=== PATIENT | female | born 1950 | race Caucasian/White ===

== ENCOUNTER → 2019-04-30 15:37 | Outpatient (CLI) | payer MEDICARE, SELFPAY ==
--- NOTE | ~2019-04-30 | MM_ITS ---
EXAMINATION: MM screening [facility] BI w jaime HISTORY: Screening mammogram TECHNIQUE: Craniocaudal and mediolateral oblique 3-D tomosynthesis images were obtained and synthetic 2-D images were generated. CAD analysis was submitted and interpreted. COMPARISON: Prior mammograms dating back to 02/18/2013 BREAST PARENCHYMAL COMPOSITION: The breasts are almost entirely fatty. FINDINGS: An intramammary lymph node is noted in the outer right breast. There is no evidence of susp icious mass, calcification, or architectural distortion to suggest malignancy in either breast. There has been no suspicious interval change. IMPRESSION: 1. No mammographic evidence of malignancy. 2. Recommend routine screening mammography in one year. BI-RADS Category 2: Benign finding(s). 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
== END ==
PROVIDERS: PCP Family Medicine Adolescent Medicine; Visit Provider Family Medicine Adolescent Medicine
DX: Z12.31 Encounter for screening mammogram for malignant neoplasm of breast (principal)
CPT/HCPCS: 77063; 77067

== ENCOUNTER 2019-10-23 01:10 | Outpatient (CLI) | payer MEDICARE, SELFPAY ==
[2019-10-23 18:39] LABS: SARS-CoV-2 RNA PCR Negative
== END 2019-10-23 01:11 | disposition home or self-care (01) ==
LOC: ANHCOVIDDT 01:10
PROVIDERS: PCP Family Medicine Adolescent Medicine; Visit Provider Internal Medicine Gastroenterology
DX: Z01.812 Encounter for preprocedural laboratory examination (principal); Z11.59 Encounter for screening for other viral diseases
CPT/HCPCS: 87635; C9803; U0003

== ENCOUNTER 2019-10-25 02:19 | Day surgery (SDC) | payer MEDICARE, SELFPAY ==
[2019-10-18 10:40] VITALS: BMI 32.2
[2019-10-25 07:36] VITALS: BP 149/76; PULSE 83; RESP 16; TEMP 36.6; O2SAT 99; BMI 32.8
[2019-10-25] MEDS: LACTATED RINGERS 1,000 ML 150 ML IV CONT (07:40)
--- NOTE | 2019-10-25 07:59 | WPDANESEPPF ---
Anes - Initial Pre Proc Eval Procedure: Operation Date: 10/25/19 08:30 Proposed Procedures p Screening Colonoscopy - Kamran Bacon MD Date/Time: 10/25/19 07:59 Surgeon: Kamran Bacon MD Pre Op Diagnosis: neoplasm screening Patient Data Age: 69 Gender: F Height: 5 ft 2 in Weight: 81.6 kg Last Vital Signs Temp 97.8 F 10/25/19 07:36 Pulse 83 10/25/19 07:36 Resp 16 10/25/19 07:36 BP 149/76 H 10/25/19 07:36 Pulse Ox 99 10/25/19 07:36 Allergies Allergy/AdvReac Type Severity Reaction Status Date / Time codeine Allergy Other Verified 10/25/19 07:35 Home Medications Medication Instructions Recorded Confirmed Type multivitamin [Daily Multi-Vitamin] 1 tablet PO DAILY 10/18/19 10/18/19 History simvastatin 40 mg PO DAILY 10/18/19 10/18/19 History tramadol See Rx Instructions .ROUTE 10/18/19 10/18/19 History .COMPLEX PRN Patient hx anesthesia problems: none Family hx anesthesia problems: none [facility] Past Medical History Medical History (Updated 10/25/19 @ 07:58 by Bradley Block MD) Arthritis Hyperlipidemia Anes - Eval Final PreProcedure Day of Procedure 10/25/19 07:59 Patient weight: overweight Heart: regular rate and rhythm Lungs: clear to auscultation Airway: Mallampati scale class II Neurological: alert and oriented Last oral intake: >/= 8 hours ASA classification: II Emergent: no Anesthetic plan: proceed Anesthesia type and monitoring: general GIVS and standard monitoring Informed Consent: The patient's anesthetic plan and its attendant risks and benefits were discussed with the patient/family/POA. Questions were solicited and answers provided to the satisfaction of the patient/family/POA.
--- NOTE | 2019-10-25 08:01 | P.CONGI_ITS ---
Assessment and Plan Assessment and plan (1) Family history of colonic polyps: Code(s): Z83.71 - Family history of colonic polyps Status: Acute (2) History of colon polyps: Code(s): Z86.010 - Personal history of colonic polyps Status: Acute Assessment and Plan: Plan is for surveillance colonoscopy now and at intervals in the future because of family history of colon polyps and cancer. Colonoscopy will be performed today with follow-up in 3-5 years. (3) Family history of colon cancer in mother: Code(s): Z80.0 - Family history of malignant neoplasm of digestive organs Status: Acute GI Consult Note Consult date/time: 10/25/19 08:01 HPI: Sondra Lubin is a 69 year old female Seen in evaluation at the [facility] of Dr. Home Perez. Patient presents for screening colonoscopy. Patient current weight appetite bowel movements are normal. Her family history is significant that her mother and grandmother both have had colon cancer. There are other family members who have had colon polyps. Patient herself has had colon polyps in the past. Her most recent colonoscopy was 5 years ago. Patient states that her current weight appetite bowel is normal. She denies abdominal pain. She denies blood in stools. Her weight has remained stable. Review of Systems Review of Systems: All systems reviewed & are unremarkable except as noted in HPI and below PMFSH Past Medical History Medical History Arthritis Hyperlipidemia Meds Home Medications and Allergies Home Medications Medication Instructions Recorded Confirmed Type multivitamin [Daily Multi-Vitamin] 1 tablet PO DAILY 10/18/19 10/18/19 History simvastatin 40 mg PO DAILY 10/18/19 10/18/19 History tramadol See Rx Instructions .ROUTE 10/18/19 10/18/19 History .COMPLEX PRN Allergies Allergy/AdvReac Type Severity Reaction Status Date / Time codeine Allergy Other Verified 10/25/19 07:35 Vital Signs Vital Signs - 24 hr 10/25/19 07:36 Temperature 97.8 F Pulse Rate 83 Respiratory Rate 16 Blood Pressure 149/76 H Pulse Oximetry 99 Exam Narrative: Exam Narrative: Physical exam reveals patient to be alert. Vital signs stable. HEENT exam unremarkable. Heart is without murmur or extra sounds. Abdominal exam bowel sounds are present soft nontender with no organomegaly. Digital external rectal exam normal.
[2019-10-25] MEDS: SIMETHICONE ORAL SUSPENSION 20 MG/0.3 ML 30 ML BOTTLE 0.6 ML IRRIGATION (08:42)
[2019-10-25 08:57] VITALS: BP 108/56; PULSE 76; RESP 18; O2SAT 100
[2019-10-25 09:07] VITALS: BP 100/71; PULSE 71; RESP 23; O2SAT 97
[2019-10-25 09:16] VITALS: BP 119/68; PULSE 71; RESP 17; O2SAT 100
== END 2019-10-25 09:35 | disposition home or self-care (01) ==
PROVIDERS: PCP Family Medicine Adolescent Medicine; Visit Provider Internal Medicine Gastroenterology
PROC: 0DJD8ZZ Inspection of Lower Intestinal Tract, Via Natural or Artificial Opening Endoscopic (ICD-10-PCS; CPT 45378; principal; 2019-10-25 08:30)
DX: Z12.11 Encounter for screening for malignant neoplasm of colon (principal); D12.3 Benign neoplasm of transverse colon; K57.30 Diverticulosis of large intestine without perforation or abscess without bleeding; K64.8 Other hemorrhoids; Z80.0 Family history of malignant neoplasm of digestive organs; Z83.71 Family history of colonic polyps; E78.5 Hyperlipidemia, unspecified
CPT/HCPCS: 45385; 88305; J2001; J2704; J7120

== ENCOUNTER → 2020-08-03 12:55 | Outpatient (CLI) | payer MEDICARE, SELFPAY ==
--- NOTE | ~2020-08-03 | MM_ITS ---
EXAMINATION: MM screening [facility] BI w jaime HISTORY: Screening TECHNIQUE: Craniocaudal and mediolateral oblique 3-D tomosynthesis images were obtained and synthetic 2-D images were generated. CAD analysis was submitted and interpreted. COMPARISON: Comparison to multiple prior studies sequentially, with oldest reviewed study dated 02/01. BREAST PARENCHYMAL COMPOSITION: There are scattered areas of fibroglandular density. FINDINGS: There is no evidence of suspicious mass, calcification, or architectural distortion to sugg est malignancy in either breast. There has been no suspicious interval change. IMPRESSION: 1. No mammographic evidence of malignancy. 2. Recommend routine screening mammography in one year. BI-RADS Category 1: Negative Reviewed, dictated and finalized at location A.
== END ==
PROVIDERS: PCP Family Medicine Adolescent Medicine; Visit Provider Family Medicine Adolescent Medicine
DX: Z12.31 Encounter for screening mammogram for malignant neoplasm of breast (principal)
CPT/HCPCS: 77063; 77067

== ENCOUNTER → 2021-02-17 07:30 | Outpatient (CLI) | payer MEDICARE, SELFPAY ==
--- NOTE | ~2021-02-17 | XR_ITS ---
EXAMINATION: XR chest 2V DATE: 02/17/2021 07:49 INDICATION: Cough. TECHNIQUE: Frontal and lateral views of the chest were obtained. COMPARISON: Chest 2 views 04/14/2015, CT abdomen 11/21/2017 FINDINGS: The chest demonstrates clear lungs without pneumonia, pleural effusion, or pneumothorax. Th e heart size is normal. IMPRESSION: 1. No acute cardiopulmonary disease. Reviewed, dictated and finalized at location A. 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
== END ==
PROVIDERS: PCP Family Medicine Adolescent Medicine; Visit Provider Family Medicine Adolescent Medicine
DX: R05.9 Cough, unspecified (principal)
CPT/HCPCS: 71046

== ENCOUNTER → 2021-06-18 11:48 | Outpatient (CLI) | payer MEDICARE, SELFPAY ==
--- NOTE | ~2021-06-18 | XR_ITS ---
EXAMINATION: XR chest 2V 06/18/2021 12:13 INDICATION: Shortness of breath PROCEDURE: 2 view chest COMPARISON: Comparison to multiple prior studies sequentially, with oldest reviewed study dated 05/03. FINDINGS: The lungs are clear. The cardiomediastinal silhouette is within normal limits. There are no pleural effusions. There is no pneumothorax suspected. IMPRESSION: 1: NO ACUTE CARDIOPULMONARY DISEASE. Reviewed, dictated and finalized at location B.
== END ==
PROVIDERS: PCP Family Medicine Adolescent Medicine; Visit Provider Physician Assistant
DX: R06.02 Shortness of breath (principal)
CPT/HCPCS: 71046

== ENCOUNTER 2021-09-14 00:08 | Day surgery (SDC) | payer MEDICARE, SELFPAY ==
[2021-08-23 15:09] VITALS: BMI 34.8
--- NOTE | 2021-09-14 07:45 | WPDANESEPPF ---
Anes - Initial Pre Proc Eval Procedure: Operation Date: 09/14/21 09:00 Proposed Procedures p Esophagogastroduodenoscopy & Colonoscopy - Kamran Bacon MD Date/Time: 09/14/21 07:45 Surgeon: Kamran Bacon MD Pre Op Diagnosis: ANTWAN,fm hx colon ca,occasional GI bleed Patient Data Age: 71 Gender: F Height: 1.57 m Weight: 86.4 kg Allergies Allergy/AdvReac Type Severity Reaction Status Date / Time codeine Allergy Other Verified 09/14/21 07:47 Home Medications Medication Instructions Recorded Confirmed Type multivitamin (Daily Multi-Vitamin 1 tablet PO DAILY 10/18/19 08/23/21 History tablet) tramadol 50 mg tablet 50 mg PO Q6H PRN pain #120 tabs 05/03/21 08/23/21 Rx atorvastatin 20 mg tablet 20 mg PO DAILY 06/14/21 08/23/21 History glucosamine 750 [id number] 1 tablet PO BID 06/14/21 08/23/21 History no1 644 mg-C 30 mg-luis 1 mg tablet (Osteo Bi-Flex Triple Strength) ipratropium bromide 42 mcg (0.06 2 spray intranasal BID PRN Runny 06/14/21 08/23/21 History %) nasal spray Nose ketoconazole 2 % shampoo 1 applic topical 3XW #120 mL 06/14/21 08/23/21 Rx ferrous sulfate 325 mg (65 mg 325 mg PO BID #60 tabs 06/21/21 08/23/21 Rx iron) tablet valsartan 160 mg tablet 160 mg PO DAILY #30 tabs 08/09/21 08/23/21 Rx Patient hx anesthesia problems: none Family hx anesthesia problems: none Results Review: All pre-operative results and documents have been reviewed as part of the pre-operative evaluation. [facility] Past Medical History Medical History (Updated 08/13/21 @ 13:33 by ANEL Carmen) Arthritis Family hx of colon cancer Fibromyalgia Hx of adenomatous colonic polyps Hyperlipidemia Hypertension Juvenile Hoa's syndrome Obese Surgical History Surgical History History of bilateral hip replacements Family History Family History Mother Colon cancer Grandparent Colon cancer Sibling Melanoma Breast cancer Heart disease Father Heart disease Other Cerebrovascular accident Social History Social History Smoking packs per day: 0.5 Smoking cigarettes per day: 10.0 Years smoked: 5 Smoking pack-years: 2.50 Smoking status: Former smoker Tobacco type: cigarettes Second hand tobacco smoke exposure: No Smoking end date: 04/03/89 Alcohol intake: never Alcohol use details: Socially Substance use: never Substance use type: does not use Living arrangements: alone Gender identity (if verbalized by the patient): Female Sexual Orientation (if Verbalized by the Patient): Straight or Heterosexual Spiritual care concerns: No Agree to blood products: Yes Anes - Eval Final PreProcedure Day of Procedure 09/14/21 07:45 Patient weight: obese Heart: regular rate and rhythm Lungs: clear to auscultation Airway: Mallampati scale class II Neurological: alert and oriented Last oral intake: >/= 8 hours ASA classification: III Emergent: no Anesthetic plan: proceed Anesthesia type and monitoring: general GIVS and standard monitoring Results Review: All pre-operative results and documents have been reviewed as part of the pre-operative evaluation. Informed Consent: The patient's anesthetic plan and its attendant risks and benefits were discussed with the patient/family/POA. Questions were solicited and answers provided to the satisfaction of the patient/family/POA.
[2021-09-14 07:49] VITALS: BP 139/86; PULSE 87; RESP 18; TEMP 36.6; O2SAT 98
[2021-09-14] MEDS: LACTATED RINGERS 1,000 ML 150 ML IV CONT (08:00)
--- NOTE | 2021-09-14 08:23 | PM.IMHP ---
H&P: HPI History of Present Illness Date/Time: 09/14/21 08:23 Chief Complaint: Iron deficiency anemia and occult blood in stool. Narrative: This is a 71-year-old white female patient presents for colonoscopy. Patient recently complained of fatigue. Upon presenting to primary care office found to have anemia with iron deficient indices. Stool was occult positive. Patient has a history of adenomatous colon polyps in the past. Family history is significant that her mother and grandmother both have had colon cancer. Patient presents today for both colonoscopy an EGD to assess for etiology of anemia patient denies any other signs of bleeding. No bruises. No nose bleeds or blood in the urine. Review of Systems Review of Systems: Review of systems noncontributory. [facility] Past Medical History Medical History (Updated 08/13/21 @ 13:33 by ANEL Carmen) Arthritis Family hx of colon cancer Fibromyalgia Hx of adenomatous colonic polyps Hyperlipidemia Hypertension Juvenile Hoa's syndrome Obese Surgical History Surgical History History of bilateral hip replacements Family History Family History Mother Colon cancer Grandparent Colon cancer Sibling Melanoma Breast cancer Heart disease Father Heart disease Other Cerebrovascular accident Social History Social History Smoking packs per day: 0.5 Smoking cigarettes per day: 10.0 Years smoked: 5 Smoking pack-years: 2.50 Smoking status: Former smoker Tobacco type: cigarettes Second hand tobacco smoke exposure: No Smoking end date: 04/03/89 Alcohol intake: never Alcohol use details: Socially Substance use: never Substance use type: does not use Living arrangements: alone Gender identity (if verbalized by the patient): Female Sexual Orientation (if Verbalized by the Patient): Straight or Heterosexual Spiritual care concerns: No Agree to blood products: Yes Meds Home Medications and Allergies Home Medications Medication Instructions Recorded Confirmed Type multivitamin (Daily Multi-Vitamin 1 tablet PO DAILY 10/18/19 08/23/21 History tablet) tramadol 50 mg tablet 50 mg PO Q6H PRN pain #120 tabs 05/03/21 08/23/21 Rx atorvastatin 20 mg tablet 20 mg PO DAILY 06/14/21 08/23/21 History glucosamine 750 ot-[id number]-[id number] 1 tablet PO BID 06/14/21 08/23/21 History no1 644 mg-C 30 mg-luis 1 mg tablet (Osteo Bi-Flex Triple Strength) ipratropium bromide 42 mcg (0.06 2 spray intranasal BID PRN Runny 06/14/21 08/23/21 History %) nasal spray Nose ketoconazole 2 % shampoo 1 applic topical 3XW #120 mL 06/14/21 08/23/21 Rx ferrous sulfate 325 mg (65 mg 325 mg PO BID #60 tabs 06/21/21 08/23/21 Rx iron) tablet valsartan 160 mg tablet 160 mg PO DAILY #30 tabs 08/09/21 08/23/21 Rx Allergies Allergy/AdvReac Type Severity Reaction Status Date / Time codeine Allergy Other Verified 09/14/21 07:47 Vital Signs Vital Signs - 24 hr 09/14/21 07:49 Temperature 97.8 F Pulse Rate 87 Respiratory Rate 18 Blood Pressure 139/86 Pulse Oximetry 98 Oxygen Delivery Room Air Exam Narrative: Physical exam reveals patient to be alert. Vital signs stable. HEENT exam is unremarkable. Patient is anicteric. Lungs are clear to auscultation and percussion. Heart is without murmur or extra sounds. Abdominal exam bowel sounds are present soft nontender with no organomegaly. Digital external rectal exam is normal. Assessment and Plan Assessment and plan (1) Family hx of colon cancer: Code(s): Z80.0 - Family history of malignant neoplasm of digestive organs Status: Acute Assessment and Plan: Patient's mother and grandmother have had colon cancer. For this reason screening colonoscopy now and at interva
[2021-09-14 09:38] VITALS: BP 120/73; PULSE 83; RESP 17; O2SAT 99
[2021-09-14 09:48] VITALS: BP 115/68; PULSE 74; RESP 15; O2SAT 100
--- NOTE | 2021-09-14 09:56 | SUR.OPER ---
EGD START: 911; END: 913. COLONOSCOPY START: 919; END: 933.
[2021-09-14 09:58] VITALS: BP 141/69; PULSE 69; RESP 21; O2SAT 100
[2021-09-14 10:06] LABS: Hematocrit 39.3 % (37.0-47.0); Hemoglobin 12.5 g/dL (12.0-15.0); Mean Corpuscular HGB Conc 31.8 g/dl (32-36); Mean Corpuscular Hemoglobin 27.5 pg (26-34); Mean Corpuscular Volume 86.4 fl (80-100); Mean Platelet Volume 9.8 fl (7.4-10.4); Platelet Count Result 245 k/mm3 (150-375); Red Blood Count 4.55 M/mm3 (4.2-5.4); Red Cell Distribution Width 15.6 % (11.5-14.5); White Blood Count 5.3 K/mm3 (4.5-10.0)
--- NOTE | 2021-09-14 10:07 | SUR.PHASEII ---
labs obtained and sent to lab per Dr. Bacon orders. pt provided with general surgery's office number. verified with pt correct pharmacy and order placed for script.
[2021-09-14 10:16] LABS: Alanine Aminotransferase 20 U/L (6-35); Albumin Level 3.8 g/dL (3.5-5.1); Alkaline Phosphatase 102 U/L (38-126); Aspartate Amino Transferase 25 U/L (14-36); Bilirubin,Total 0.5 mg/dL (0.2-1.3)
--- NOTE | 2021-09-14 10:26 | SUR.PHASEII ---
pt requested RN go over discharge instructions with daughter at pickup. instructions reviewed with daughter, denies questions.
[2021-09-14 11:06] LABS: Carcinoembryonic Antigen 4.2 ng/mL (0.0-3.0)
== END 2021-09-14 10:19 | disposition home or self-care (01) ==
PROVIDERS: PCP Family Medicine Adolescent Medicine; Visit Provider Internal Medicine Gastroenterology
PROC: 0DJ08ZZ Inspection of Upper Intestinal Tract, Via Natural or Artificial Opening Endoscopic (ICD-10-PCS; CPT 43235; principal; 2021-09-14 09:00)
DX: C18.0 Malignant neoplasm of cecum (principal); D12.5 Benign neoplasm of sigmoid colon; K64.8 Other hemorrhoids; D50.9 Iron deficiency anemia, unspecified; K21.00 Gastro-esophageal reflux disease with esophagitis, without bleeding; Z83.71 Family history of colonic polyps; Z80.0 Family history of malignant neoplasm of digestive organs; I10 Essential (primary) hypertension; E78.5 Hyperlipidemia, unspecified; M79.7 Fibromyalgia; M02.30 Reiter's disease, unspecified site; Z87.891 Personal history of nicotine dependence; E66.9 Obesity, unspecified; Z68.33 Body mass index [BMI] 33.0-33.9, adult
CPT/HCPCS: 45380; 45385; 43239; 36415; 80076; 82378; 85027; 87081; 88305; J2001; J2704; J7120

== ENCOUNTER 2021-10-05 11:54 | Outpatient (CLI) | payer MEDICARE, SELFPAY ==
--- NOTE | 2021-10-05 13:11 | ECG_ITS ---
Measurements Intervals [place] Rate: 73 P: 49 [place]: 140 QRS: 40 QRSD: 92 T: 44 QT: 384 QTc: 426 Interpretive Statements SINUS RHYTHM BASELINE ARTIFACT- I, II, III, AVR, AVL, AVF, V1-V6 NORMAL ECG Electronically Signed On 10-05-2021 13:24:16 CDT by Edd Zeng D.O.
== END 2021-10-05 11:55 | disposition home or self-care (01) ==
LOC: ANHSURGERY 12:01
PROVIDERS: PCP Family Medicine Adolescent Medicine; Visit Provider Surgery
DX: K63.89 Other specified diseases of intestine (principal); Z01.818 Encounter for other preprocedural examination
CPT/HCPCS: 36415; 86850; 86900; 86901; 93005

== ENCOUNTER 2021-10-14 11:20 | Inpatient (IN) | payer MEDICARE, SELFPAY ==
--- NOTE | 2021-10-05 12:32 | PC.NURSE ---
Addendum entered by Monse Yo RN 10/05/21 12:40: ENSURE BUNDLE PER DR GARRISON Original Note: Report to the Outpatient Waiting Room, entrance under the green pavilion located off [address], at time __0600 on date ___10/14/21____. OR Time: 729 . - You and your visitor will be asked a series of questions to screen for COVID 19 for your protection. - Only one visitor is allowed at this time. - The patient visitor is requested to leave or wait in car when not with patient. - A mask is required within the hospital. Patients may have clear liquids (water, carbonated beverages, clear teas, apple juice) until 3 hours prior to surgery with a maximum of 20 ounces. - No food from midnight until time of surgery - Infants may have breast milk until 4 hours before surgery, formula 6 hours prior to surgery. - Children will be allowed to drink immediately following surgery. If applicable, please bring a bottle or sippy cup to assist with drinking. Juice, water, soda, and popsicles are readily available. For infants on formula, please bring formula the day of surgery. Pacifiers are allowed. Take the following medications with a SIP of water the morning of surgery: ___NONE Medications to discontinue per physician ALL VITAMINS AND SUPPLEMENTS 3 DAYS PRE OP Date to take last dose_10/10/21 Please no make-up, nail malay, hairspray, perfume, deodorant, or body powder the day of surgery. No jewelry (including any body piercings) or valuables the day of surgery, leave them at home. Please take a shower or bath the night before, or the morning of, surgery with an antibacterial soap. Wear comfortable, loose fitting clothing. Children are encouraged to wear pajamas. - Jewelry must be removed prior to entering the operating room. Rings and piercings that are not removed may be cut off. - The hospital will not accept responsibility for valuables. - Please leave all valuables, including medications, at home the day of surgery.HIBICLENS SHOWER DAY BEFORE SURGERY AND MORNING OF SURGERY If you are going home after surgery, a licensed student truck driver must drive you home. - NO public transportation without another adult. - We recommend that an adult stay with you for 24 hours following discharge. - We also recommend that you do not drive, make important decision, drink alcoholic beverages, or take any drugs that were not prescribed by your health care provider for at least 24 hours after your discharge time. For Pediatric surgeries, we recommend two adults accompany the child home (only one inside the building at this time). Follow any additional instructions given to you from your surgeon. If you or anyone in your household have experienced Covid symptoms in the past week, please notify your surgeon or the nurse liaison at the phone number below for possible testing. VERBAL AND WRITTEN instructions given to ___PATINET and asked if any additional questions and then verbalized understanding. Patient advised to call surgeon office or pre surgery nurse liaison [phone] if any additional questions.
[2021-10-05 13:06] VITALS: BP 138/77; PULSE 80; RESP 18; TEMP 36.8; O2SAT 97; BMI 34.2
[2021-10-14] VITALS (17 sets, daily range): BP systolic 107–145; BP diastolic 51–91; PULSE 55–97; RESP 12–18; TEMP 36.5–37.1; O2SAT 94–100
[2021-10-14] MEDS: ACETAMINOPHEN 500 MG TABLET 1000 MG PO (07:00)
[2021-10-14] MEDS: ALVIMOPAN 12 MG CAPSULE PO (07:00)
[2021-10-14] MEDS: KETOROLAC 15 MG/ML VIAL (*BKC) IV PUSH (07:00)
--- NOTE | 2021-10-14 07:21 | WPDHPUPDATE1 ---
History and Physical Update Update Date/Time: 10/14/21 07:21 History and Physical has been reviewed, including an updated exam of the patient. There are NO changes in the patient's condition. Risks, benefits, and alternatives have been discussed and questions answered. Patient agrees to proceed with procedure.
[2021-10-14] MEDS: ceFAZolin 2 GM/D5W 50 ML 2 GM/50 ML BAG IVPB ×3 (07:28→23:26)
[2021-10-14] MEDS: SCOPOLAMINE 1.5 MG PATCH TRANSDERM (07:38)
[2021-10-14] MEDS: LACTATED RINGERS 1,000 ML 30 ML IV CONT (07:38)
[2021-10-14] MEDS: BUPIVACAINE/EPINEPHRINE 0.25% 50 ML VIAL 30 ML INFILTRATE (08:50)
--- NOTE | 2021-10-14 09:28 | W.PM.PROC2 ---
Procedure Note - Detailed Date of Procedure 10/14/21 Pre-op Diagnosis cecal cancer Post-op Diagnosis Same Procedure Performed hand assisted laparoscopic right hemicolectomy c mobilization of hepatic flexure Surgeon Christelle Webber MD Anesthesia General Indications 71 y/o F c biopsy proven cecal cancer on colonoscopy Findings palpable mass cecum Description of Procedure The patient was taken to the operating room and placed in the supine position. After adequate induction of general anesthesia, the patient was prepped and draped normal sterile fashion. A time-out was then done to verify the patient's identity as well as the procedure being performed. I began by making a hand port incision around the umbilicus. This was carried down into the peritoneal cavity. Once the abdominal wall was noted to be clear, the hand port was then placed. I then insufflated the abdomen through the hand port. I then placed the camera through the hand port and under direct visualization, I placed 2 5 mm ports in left lower and left mid abdomen. Once this was done, I examined the right abdomen. I was able to easily palpate the mass in the cecum. I then began my dissection of the right colon using a medial to lateral approach. I did this by 1st recognizing and transecting the right colic vessels. This was taken down near the base of the mesentery with the LigaSure. Once this was done, I carried this plane towards the hepatic flexure until I encountered the duodenum which was mobilized posteriorly. I then began taking down the lateral attachments of the terminal ileum and right colon including taking down the white line of Toldt and the hepatic flexure. Once this was done my medial and lateral dissection planes met. I was able to easily manipulate the right colon. The palpable mass was again noted in the cecum. At this point, I extracorporealyzed the right colon and terminal ileum. I then transected the terminal ileum approximately 10 cm proximal to the ileocolic junction with a 55 GLORIA stapler. I then measured approximately 10 cm distal to the cecal mass and transected the ascending colon at this point. While preparing for anastomosis, it was noted that the small bowel margin was a little dusky, given this I did resect additional ileum. I then performed a [id number] functional end-to-end anastomosis between the ileum and ascending colon with a 55 GLORIA stapler followed by a TL 60 stapler. The anastomosis was noted to be tension-free and widely patent. I closed the messenteric defect with a 2.0 silk suture. I then copiously irrigated the abdomen, no other pathology was noted. I then closed the hand port incision with a 0 PDS suture at the fascial level. The skin was closed with 4 O Monocryl subcuticular sutures including the 5 mm ports sites. Dermabond was then placed on all wounds. The patient tolerated the procedure well. She was extubated in the operating room postoperatively and will be transferred to the recovery room in stable condition. Estimated Blood Loss 20 Drains No Packing No Pathology Yes Complications No immediate complications Condition Stable Disposition PACU [facility] Billing Surgery - Charge Forward: Surgery Billing
[2021-10-14] MEDS: fentaNYL CITRATE INJ (*CRX) 100 MCG/2 ML VIAL 25 MCG IV PUSH ×4 (09:40→09:58)
--- NOTE | 2021-10-14 11:35 | ADMGEN ---
This patient, Sondra Lubin, was admitted to 2 Medical Room 257-01. Patient/family oriented to hospital policies and general routines including ID bracelet, bed and alarms, visiting hours, pain management, procedures, bathroom and other care routines, personal items, smoking policy, room service/diet, and visiting hours. Information on how to activate the Rapid Response Team has been discussed. Patient/Family are encouraged to report perceived risks to care and to ask questions if they do not understand what they are told or what they should do.
[2021-10-14] MEDS: LACTATED RINGERS 1,000 ML 100 ML IV CONT ×2 (12:17→23:07)
--- NOTE | 2021-10-14 16:47 | PC.NURSE ---
pt not wanting to take PO meds due to only taking in clear liquids
[2021-10-14] MEDS: MORPHINE SULFATE (*CRX) 2 MG/ML INJ IV PUSH ×2 (20:52→23:08)
[2021-10-14] MEDS: ATORVASTATIN 20 MG TABLET PO (20:53)
[2021-10-15 01:05] VITALS: BP 128/61; PULSE 90; RESP 18; TEMP 37.1; O2SAT 95
[2021-10-15] MEDS: HYDROcodone/acetaminophen (*CRX) 5-325 MG TABLET 1 TAB PO ×4 (02:15→23:12)
[2021-10-15 05:02] VITALS: BP 120/55; PULSE 74; RESP 16; TEMP 36.7; O2SAT 97
[2021-10-15 05:39] LABS: Basophils Percent Auto 0.1 % (0.2-1.2); Hematocrit 34.6 % (37.0-47.0); Hemoglobin 11.1 g/dL (12.0-15.0); Immature Granulocyte Absolute 0.04 K/mm3 (0.00-0.031); Immature Granulocyte Percent A 0.3 % (0-0.5); Lymphocytes Absolute Auto 1.13 K/mm3 (0.9-3.2); Lymphocytes Percent Auto 8.8 % (18.3-44.2); Mean Corpuscular HGB Conc 32.1 g/dl (32-36); Mean Corpuscular Hemoglobin 27.5 pg (26-34); Mean Corpuscular Volume 85.6 fl (80-100); Monocytes Absolute Auto 0.9 K/mm3 (0.1-0.6); Monocytes Percent Auto 7.1 % (2.6-8.5); Neutrophils Absolute Auto 10.7 K/mm3 (1.3-6.7); Neutrophils Percent Auto 83.7 % (45.5-73.1); Platelet Count Result 277 k/mm3 (150-375); Red Blood Count 4.04 M/mm3 (4.2-5.4); Red Cell Distribution Width 14.2 % (11.5-14.5); White Blood Count 12.8 K/mm3 (4.5-10.0)
[2021-10-15 05:43] LABS: Anion Gap 3 mmol/L (8-16); Blood Urea Nitrogen 15 mg/dL (7-17); Calcium 8.4 mg/dL (8.4-10.2); Carbon Dioxide 27 mmol/L (22-30); Chloride 107 mmol/L (98-107); Estimated CRCL calculation 73 ml/min; Estimated Glomerular Filt Rate > 60; Glucose 124 mg/dL (65-110); Potassium 3.7 mmol/L (3.4-5.0); Sodium 137 mmol/L (137-145)
[2021-10-15] MEDS: ENOXAPARIN 40 MG/0.4 ML SYRINGE SUB-Q (07:57)
[2021-10-15] MEDS: MULTIVITAMINS THERAPEUTIC TAB (*BKC) 1 TABLET PO (07:57)
[2021-10-15] MEDS: FERROUS SULFATE 324 MG TABLET PO ×2 (07:57→16:25)
[2021-10-15] MEDS: VALSARTAN 160 MG TABLET PO (07:58)
[2021-10-15] MEDS: PANTOPRAZOLE 40 MG TABLET PO (07:58)
[2021-10-15] MEDS: MORPHINE SULFATE (*CRX) 2 MG/ML INJ IV PUSH (07:58)
[2021-10-15 10:00] VITALS: BP 121/56; PULSE 80; RESP 16; TEMP 37.2; O2SAT 95
--- NOTE | 2021-10-15 10:51 | PM.PNGS ---
Progress Note: A&P Assessment and Plan (1) Colon carcinoma: Code(s): C18.9 - Malignant neoplasm of colon, unspecified Status: Acute Assessment and Plan: s/p R colectomy, doing well, ADAT, encourage OOB/IS, home soon Subjective Subjective Date/Time Seen: 10/15/21 10:51 feels good, some flatus, ahmet clears Review of Systems Review of Systems: All systems reviewed & are unremarkable except as noted in HPI and below Exam Const: General: cooperative, comfortable and no acute distress Resp: Auscultation: clear to auscultation bilaterally Cardio: Rate: regular rate Rhythm: regular rhythm GI: Inspection: normal to inspection, distended and incision GI Palp: Yes abdominal tenderness, Yes Soft to palpation, Yes Tenderness to palpation present (GI), No Guarding due to palpation present (GI) and No Rigid due to palpation Other: incision C/D/I Objective Data Vital Signs Vital Signs: Vital Signs - 24 hr 10/14/21 11:00 10/14/21 11:15 10/14/21 11:47 Temperature 36.7 C Pulse Rate 91 96 86 Respiratory Rate 12 16 15 Blood Pressure 109/63 111/65 117/51 L Pulse Oximetry 98 98 97 Oxygen Delivery Nasal Cannula Nasal Cannula Oxygen Flow Rate 2 2 10/14/21 12:03 10/14/21 12:33 10/14/21 17:33 Temperature 36.7 C 36.5 C 36.9 C Pulse Rate 87 90 97 Respiratory Rate 16 16 18 Blood Pressure 117/59 L 115/61 122/51 L Pulse Oximetry 96 94 94 Oxygen Delivery Oxygen Flow Rate 10/14/21 21:00 10/14/21 20:00 10/15/21 01:05 Temperature 37.1 C 37.1 C Pulse Rate 95 95 90 Respiratory Rate 16 16 18 Blood Pressure 126/59 L 128/61 Pulse Oximetry 96 96 95 Oxygen Delivery Room Air Oxygen Flow Rate 10/15/21 05:02 10/15/21 10:00 Temperature 36.7 C 37.2 C Pulse Rate 74 80 Respiratory Rate 16 16 Blood Pressure 120/55 L 121/56 L Pulse Oximetry 97 95 Oxygen Delivery Oxygen Flow Rate Intake/Output Intake/Output: Intake & Output 10/12/21 10/13/21 10/14/21 10/15/21 23:59 23:59 23:59 23:59 Intake Total 1640 480 Output Total 300 400 Balance 1340 80 Meds/Results Medications: Active Medications Generic Name Dose Route Start Last Admin Trade Name Willardq PRN Reason Stop Dose Admin Acetaminophen 500 mg 10/14/21 11:20 Acetaminophen 500 Mg Tablet PO Q6H PRN Mild Pain (1-3) or Fever Hydrocodone Bitart/Acetaminophen 1 tab 10/14/21 11:20 10/15/21 02:15 Hydrocodone/Acetaminophen (*Crx) 5-325 Mg Tablet PO 1 tab Q4H PRN Administration Pain Rated 4-6 Alvimopan 12 mg 10/15/21 21:00 Alvimopan 12 Mg Capsule PO 10/22/21 20:59 Q12HR L[place] Atorvastatin Calcium 20 mg 10/14/21 21:00 10/14/21 20:53 Atorvastatin 20 Mg Tablet PO 20 mg HS L[facility]TON Administration Enoxaparin Sodium 40 mg 10/15/21 09:00 10/15/21 07:57 Enoxaparin 40 Mg/0.4 Ml Syringe SUB-Q 40 mg DAILY L[facility]TON Administration Ferrous Sulfate 324 mg 10/14/21 17:00 10/15/21 07:57 Ferrous Sulfate 324 Mg Tablet PO 324 mg BID L[place]TON Administration Lactated Ringer's 1,000 mls @ 100 mls/hr 10/14/21 11:20 10/14/21 23:07 Lr - Lactated Ringers Iv IV CONT 100 mls/hr .Q10H LAYTON Administration Ipratropium [place] 2 spray 10/14/21 11:20 Ipratropium Nasal [place] 0.06% 15 Ml Bottle NASAL BID PRN Runny Nose Ketorolac Tromethamine 30 mg 10/14/21 11:20 Ketorolac 30 Mg/Ml Vial (*Bkc) IV PUSH 10/19/21 11:19 Q6H PRN Pain Rated 4-6 Morphine Sulfate 2 mg 10/14/21 11:20 10/15/21 07:58 Morphine Sulfate (*Crx) 2 Mg/Ml Inj IV PUSH 2 mg Q2H PRN Administration Pain Rated 7-10 Multivitamins Therapeutic 1 tablet 10/15/21 09:00 10/15/21 07:57 Multivitamins Therapeutic Tab (*Bkc) PO 1 tablet DAILY L[place] Administration Naloxone HCl 0.1 mg 10/14/21 11:20 Naloxone Hcl 0.4 Mg/Ml Vial IV PUSH Q2M PRN Opiate Reversal Non-Formulary Medication 1 each 10/14/21 17:00 10/15/21 07:57 Nonformulary Nutritional Supplement XX
[2021-10-15 14:00] VITALS: BP 124/58; PULSE 78; RESP 16; TEMP 36.9; O2SAT 96
[2021-10-15] MEDS: ATORVASTATIN 20 MG TABLET PO (20:13)
[2021-10-15] MEDS: ALVIMOPAN 12 MG CAPSULE PO (20:13)
[2021-10-15 20:49] VITALS: BP 112/60; PULSE 85; RESP 14; TEMP 36.9; O2SAT 97
[2021-10-16 01:01] VITALS: BP 143/63; PULSE 82; RESP 16; TEMP 36.4; O2SAT 96
[2021-10-16 07:21] VITALS: BP 163/81; PULSE 74; RESP 16; TEMP 36.6; O2SAT 99
[2021-10-16] MEDS: HYDROcodone/acetaminophen (*CRX) 5-325 MG TABLET 1 TAB PO ×4 (07:46→20:44)
[2021-10-16] MEDS: PANTOPRAZOLE 40 MG TABLET PO (09:29)
[2021-10-16] MEDS: FERROUS SULFATE 324 MG TABLET PO ×2 (09:29→17:09)
[2021-10-16] MEDS: MULTIVITAMINS THERAPEUTIC TAB (*BKC) 1 TABLET PO (09:29)
[2021-10-16] MEDS: VALSARTAN 160 MG TABLET PO (09:29)
[2021-10-16] MEDS: ALVIMOPAN 12 MG CAPSULE PO ×2 (09:30→20:44)
[2021-10-16] MEDS: ENOXAPARIN 40 MG/0.4 ML SYRINGE SUB-Q (09:30)
[2021-10-16 10:02] VITALS: BP 152/74; PULSE 82; RESP 16; TEMP 36.4; O2SAT 96
--- NOTE | 2021-10-16 10:03 | PM.PNGS ---
Progress Note: A&P Assessment and Plan (1) Colon carcinoma: Code(s): C18.9 - Malignant neoplasm of colon, unspecified Status: Acute Assessment and Plan: s/p R colectomy, doing well, ADAT, encourage OOB/IS, home soon Subjective Subjective Date/Time Seen: 10/16/21 09:03 Patient reports: no new complaints, feels better, tolerating a regular diet (low fiber/soft), flatus and bowel movement Review of Systems Review of Systems: All systems reviewed & are unremarkable except as noted in HPI and below Constitutional: Constitutional: Reports as per HPI, Denies chills and Denies fever(s) Cardiovascular: Cardiovascular: Denies chest pain and Denies dyspnea Respiratory: Respiratory: Reports no additional respiratory complaints and Denies dyspnea Gastrointestinal: Gastrointestinal: Reports as per HPI and Denies bloating Musculoskeletal: Musculoskeletal: Reports no additional musculoskeletal complaints Neurologic: Denies memory loss Psychiatric: Psychiatric: Denies anxiety and Denies memory loss Exam Const: General: cooperative, comfortable and no acute distress Resp: Auscultation: clear to auscultation bilaterally Cardio: Rate: regular rate Rhythm: regular rhythm GI: Inspection: normal to inspection and incision GI Palp: Yes abdominal tenderness, Yes Soft to palpation, Yes Tenderness to palpation present (GI) and No Guarding due to palpation present (GI) Auscultation: normal bowel sounds Other: incision C/D/I Objective Data Vital Signs Vital Signs: Vital Signs - 24 hr 10/15/21 14:00 10/15/21 20:00 10/15/21 20:49 Temperature 36.9 C 36.9 C Pulse Rate 78 85 Respiratory Rate 16 14 Blood Pressure 124/58 L 112/60 Pulse Oximetry 96 97 Oxygen Delivery Room Air 10/16/21 01:01 10/16/21 07:21 10/16/21 10:02 Temperature 36.4 C 36.6 C 36.4 C Pulse Rate 82 74 82 Respiratory Rate 16 16 16 Blood Pressure 143/63 H 163/81 H 152/74 H Pulse Oximetry 96 99 96 Oxygen Delivery Intake/Output Intake/Output: Intake & Output 10/13/21 10/14/21 10/15/21 10/16/21 23:59 23:59 23:59 23:59 Intake Total 1640 1630 1090 Output Total 300 1900 1200 Balance 1340 -270 -110 Meds/Results Medications: Active Medications Generic Name Dose Route Start Last Admin Trade Name Freq PRN Reason Stop Dose Admin Acetaminophen 500 mg 10/14/21 11:20 Acetaminophen 500 Mg Tablet PO Q6H PRN Mild Pain (1-3) or Fever Hydrocodone Bitart/Acetaminophen 1 tab 10/14/21 11:20 10/16/21 07:46 Hydrocodone/Acetaminophen (*Crx) 5-325 Mg Tablet PO 1 tab Q4H PRN Administration Pain Rated 4-6 Alvimopan 12 mg 10/15/21 21:00 10/16/21 09:30 Alvimopan 12 Mg Capsule PO 10/22/21 20:59 12 mg Q12HR [place] Administration Atorvastatin Calcium 20 mg 10/14/21 21:00 10/15/21 20:13 Atorvastatin 20 Mg Tablet PO 20 mg HS L[place] Administration Enoxaparin Sodium 40 mg 10/15/21 09:00 10/16/21 09:30 Enoxaparin 40 Mg/0.4 Ml Syringe SUB-Q 40 mg DAILY [place] Administration Ferrous Sulfate 324 mg 10/14/21 17:00 10/16/21 09:29 Ferrous Sulfate 324 Mg Tablet PO 324 mg BID [place] Administration Ipratropium [place] 2 spray 10/14/21 11:20 Ipratropium Nasal [place] 0.06% 15 Ml Bottle NASAL BID PRN Runny Nose Ketorolac Tromethamine 30 mg 10/14/21 11:20 Ketorolac 30 Mg/Ml Vial (*Bkc) IV PUSH 10/19/21 11:19 Q6H PRN Pain Rated 4-6 Morphine Sulfate 2 mg 10/14/21 11:20 10/15/21 07:58 Morphine Sulfate (*Crx) 2 Mg/Ml Inj IV PUSH 2 mg Q2H PRN Administration Pain Rated 7-10 Multivitamins Therapeutic 1 tablet 10/15/21 09:00 10/16/21 09:29 Multivitamins Therapeutic Tab (*Bkc) PO 1 tablet DAILY [place] Administration Naloxone HCl 0.1 mg 10/14/21 11:20 Naloxone Hcl 0.4 Mg/Ml Vial IV PUSH Q2M PRN Opiate Reversal Non-Formulary Medication 1 each 10/14/21 17:00 10/16/21 09:30 Nonformulary Nutritional Supplement XX 0
[2021-10-16 14:00] VITALS: BP 144/66; PULSE 80; RESP 18; TEMP 36.4; O2SAT 97
[2021-10-16 19:41] VITALS: BP 135/58; PULSE 88; RESP 18; TEMP 36.3; O2SAT 96
[2021-10-16] MEDS: ATORVASTATIN 20 MG TABLET PO (20:44)
[2021-10-17] MEDS: HYDROcodone/acetaminophen (*CRX) 5-325 MG TABLET 1 TAB PO ×4 (01:45→16:47)
[2021-10-17 03:43] VITALS: BP 127/63; PULSE 81; RESP 16; TEMP 36.6; O2SAT 97
[2021-10-17] MEDS: VALSARTAN 160 MG TABLET PO (08:05)
[2021-10-17] MEDS: FERROUS SULFATE 324 MG TABLET PO (08:05)
[2021-10-17] MEDS: MULTIVITAMINS THERAPEUTIC TAB (*BKC) 1 TABLET PO (08:05)
[2021-10-17] MEDS: ALVIMOPAN 12 MG CAPSULE PO (08:05)
[2021-10-17] MEDS: PANTOPRAZOLE 40 MG TABLET PO (08:05)
[2021-10-17] MEDS: ENOXAPARIN 40 MG/0.4 ML SYRINGE SUB-Q (08:06)
[2021-10-17 08:14] VITALS: PULSE 83; RESP 16; O2SAT 96
[2021-10-17 10:02] VITALS: BP 111/58; PULSE 87; RESP 16; TEMP 36.9; O2SAT 96
--- NOTE | 2021-10-17 15:58 | PM.DS ---
DS: Admitting Diagnosis Discharge Date 10/17/2021 Admitting Diagnosis adenocarcinoma of the right colon DS: Discharge Diagnosis Discharge Diagnosis (1) Colon carcinoma: Code(s): C18.9 - Malignant neoplasm of colon, unspecified Status: Acute Assessment and Plan: This was the main reason for the patient's admission. She presented to our OR and had a hand assisted, laparoscopic right colon resection for the lesions found on colonoscopy. Patient had uneventful postoperative course. She gradually progressed through mild ileus and returned to a soft diet. She took pain pills the last 2 days in the hospital but was mobilized and walking well when she was discharged. She is otherwise doing well Dr. Webber has talked with her about follow-up appointments and restrictions. Instruction are sent home with her. She will follow up with Dr. Webber in about 7-10 days. Pathology was not back when she was discharged. (2) BMI 29.0-29.9,adult: Code(s): Z68.29 - Body mass index [BMI] 29.0-29.9, adult Status: Acute (3) ANTWAN (iron deficiency anemia): Code(s): D50.9 - Iron deficiency anemia, unspecified Status: Acute Assessment and Plan: because she is on narcotic pain pills I have asked her to stay off the iron until she is finished with the narcotic pain pills then she may resume in order to try to build her blood count back up to normal. (4) Hypertension: Code(s): I10 - Essential (primary) hypertension Status: Acute Assessment and Plan: Resume usual home meds. (5) Fibromyalgia: Code(s): M79.7 - Fibromyalgia Status: Acute Assessment and Plan: Exercise, stretching, and returned to normal meds as recommended DS: Summary Hospital Course Reason for hospitalization: Need for surgical intervention for lesions in the cecum. Had surgery. Hospital Course: This was the main reason for the patient's admission. She presented and had a hand assisted laparoscopic right colon resection for the lesions found on colonoscopy. Patient had uneventful postoperative course. She gradually progressed through mild ileus and return to a soft diet. She took pain pills the last 2 days in the hospital but was mobilized and walking well when she was discharged. She is otherwise doing well Dr. Webber has talked with her about follow-up appointments and restrictions. Instruction she is sent home with her. She will follow up with Dr. Webber in bout 7-10 days. Pathology was not back when she was discharged. Status at Discharge Functional status at discharge: independent ambulation Overall status at discharge: patient is not back to baseline ( Still moving slow and not in any shape to do any lifting.) Time Spent with Patient Time attestation: Total time spent providing and/or coordinating discharge services: Time spent: Less than 30 minutes Specific discharge activities: Encouraged to keep postop appointment in the office answered questions regarding postop care Encourage patient to gradually increase her diet over the next several days starting with a soft diet. Encourage patient to take something if she was more than 24 hours without a bowel movement. She will also take a stool softener (Colace ) while taking narcotic pain pills. Exam Const: General: cooperative, comfortable, alert and awake Orientation/consciousness: patient oriented x3 HENMT: Head: normal to inspection Mouth: Yes moist mucous membranes Eyes: Sclera: sclerae normal Pupils: Equal, round and reactive pupils present Neck: Neck: normal visual inspection and no JVD Chest: Chest palpation & inspection: normal inspection of the chest Resp: Effort & Inspection: normal respiratory effort Auscultation: clear to auscultation bilaterally Cardio: Jugular venous distension: no JVD Rate: regular rate GI: Inspection: incision ( Clean and dry with surgical glue in place. mild bruising around the hand) GI
[2021-10-17 16:13] VITALS: BP 112/59; PULSE 82; RESP 16; TEMP 37; O2SAT 97
== END 2021-10-17 19:20 | disposition home or self-care (01) | DRG 331 ==
LOC: ANH2MED 10-17 15:58
PROVIDERS: Admitting Provider Surgery; PCP Family Medicine Adolescent Medicine; Visit Provider Surgery
PROC: 0DTF4ZZ Resection of Right Large Intestine, Percutaneous Endoscopic Approach (ICD-10-PCS; CPT 44204; principal; 2021-10-14 07:30)
DX: C18.0 Malignant neoplasm of cecum (principal); I10 Essential (primary) hypertension; D50.9 Iron deficiency anemia, unspecified; E66.9 Obesity, unspecified; Z68.29 Body mass index [BMI] 29.0-29.9, adult; M79.7 Fibromyalgia
CPT/HCPCS: 36415; 80048; 85025; 88309; A9270; J0690; J1100; J1650; J1885; J2250; J2270; J2405; J2704; J3010; J7030; J7120

== ENCOUNTER 2021-11-12 07:40 | Outpatient (CLI) | payer MEDICARE, SELFPAY ==
--- NOTE | ~2021-11-12 | CT_ITS ---
EXAMINATION: CT chest abdomen pelvis w con DATE: 11/12/2021 08:11 INDICATION: Malignant neoplasm of colon. Past smoker. TECHNIQUE: Computed tomography (CT) of the chest, abdomen, and pelvis was performed with 100 CC Omnip aque 350 intravenous contrast. Automated exposure control and iterative reconstruction technique were employed. Exam dose: 1333.54 mGy-cm total exam DLP. COMPARISON: 06/18/2021 2 view chest 11/21/2017 CT abdomen FINDINGS: CHEST CT: There is a calcified pulmonary granuloma at the left lung base. No pulmonary infiltrate or consolidat ion or pulmonary mass lesion. No hilar or mediastinal mass lesion or lymphadenopathy. No thoracic aortic aneurysm or dissection. No rmal heart size. No pericardial or pleural effusion. There is fatty change of the breasts without evidence of soft tissue mass lesion. ABDOMEN/PELVIS CT: There is hepatic steatosis. No hepatic, splenic, pancreatic, adrenal space-occupying mass lesion. 1 cm exophytic upper pole left renal cyst. Bilateral parapelvic renal cysts. No urinary tract calculus or hydroureteronephrosis. There is atherosclerotic calcification of the abdominal aorta. No intraperitoneal or retroperitoneal or pelvic mass lesion or adenopathy or ascites. Minimal colonic diverticulosis. There is a suture line in the ascending colon at ileocolic anastomosis related presumably to partial colon resection for history of colon neoplasm. There is soft tissue stranding in the surrounding adip ose tissue and minimal fluid along the lower margin of the right hepatic lobe that the pericolic gutt er and soft tissue thickening along the right anterior pararenal fascia. These may be postoperative c hanges depending upon how recent the surgery was performed. No bowel obstruction. No intraperitoneal free air. Status post bilateral total hip arthroplasty with streak artifact from prostheses limits evaluation o f the pelvic structures. The visualized portions of the uterus, adnexal areas are unremarkable. The urinary bladder is relativ tony evacuated somewhat obscured by the streak artifact. Status post posterior lumbosacral surgical fusion Grade 2 anterolisthesis and severe degenerative disc disease at L5-S1. Diffuse idiopathic skeletal hyperostosis of the thoracic spine. IMPRESSION: Status post right partial colectomy; there is some stranding in the ileocolic anastomoti c area and minimal fluid in the right pericolic gutter along the inferior hepatic margin and soft tis enrrique thickening along the right anterior pararenal fascia, most likely postoperative changes if the johnston rgery is relatively recent Hepatic steatosis Renal cysts Minimal colonic diverticulosis Status post posterior surgical fusion at the lumbosacral area Severe degenerative disc disease and grade 2 anterolisthesis at L5-S1 Bilateral total hip arthroplasty Diffuse idiopathic skeletal hyperostosis of the thoracic spine Reviewed, dictated and finalized at [facility]. Reviewed, dictated and finalized at [facility]. IMPRESSION: Status post right partial colectomy; there is some stranding in th e ileocolic anastomotic area and minimal fluid in the right pericolic gutter al best the inferior hepatic margin and soft tissue thickening along the right ante rior pararenal fascia, most likely postoperative changes if the surgery is rela tively recent Hepatic steatosis Renal cysts Minimal colonic diverticulosis Status post posterior surgical fusion at the lumbosacral area Severe degenerative disc disease and grade 2 anterolisthesis at L5-S1 Bilateral total hip arthroplasty Diffuse idiopathic skeletal hyperostosis of the thoracic spine
== END 2021-11-12 07:41 | disposition home or self-care (01) ==
PROVIDERS: PCP Family Medicine Adolescent Medicine; Visit Provider Internal Medicine Hematology & Oncology
DX: C18.9 Malignant neoplasm of colon, unspecified (principal); K76.0 Fatty (change of) liver, not elsewhere classified; N28.1 Cyst of kidney, acquired; K57.30 Diverticulosis of large intestine without perforation or abscess without bleeding; M51.37 Other intervertebral disc degeneration, lumbosacral region; M48.14 Ankylosing hyperostosis [Forestier], thoracic region
CPT/HCPCS: 71260; 74177; Q9967

== ENCOUNTER 2021-11-15 10:33 | Outpatient (CLI) | payer MEDICARE, SELFPAY ==
[2021-11-15 11:05] LABS: Basophils Percent Auto 0.5 % (0.2-1.2); Eosinophils Absolute Auto 0.2 K/mm3 (0-0.3); Eosinophils Percent Auto 2.7 % (0-4.4); Hematocrit 38.1 % (37.0-47.0); Hemoglobin 12.3 g/dL (12.0-15.0); Immature Granulocyte Absolute 0.03 K/mm3 (0.00-0.031); Immature Granulocyte Percent A 0.5 % (0-0.5); Lymphocytes Absolute Auto 1.55 K/mm3 (0.9-3.2); Lymphocytes Percent Auto 24.3 % (18.3-44.2); Mean Corpuscular HGB Conc 32.3 g/dl (32-36); Mean Corpuscular Hemoglobin 27.3 pg (26-34); Mean Corpuscular Volume 84.5 fl (80-100); Mean Platelet Volume 9.6 fl (7.4-10.4); Monocytes Absolute Auto 0.6 K/mm3 (0.1-0.6); Monocytes Percent Auto 8.6 % (2.6-8.5); Neutrophils Absolute Auto 4.1 K/mm3 (1.3-6.7); Neutrophils Percent Auto 63.4 % (45.5-73.1); Platelet Count Result 275 k/mm3 (150-375); Red Blood Count 4.51 M/mm3 (4.2-5.4); Red Cell Distribution Width 13.3 % (11.5-14.5); White Blood Count 6.4 K/mm3 (4.5-10.0)
[2021-11-15 11:17] LABS: Partial Thromboplastin Time 26.2 SECONDS (22.3-36.8); Prothrombin Time 12.9 Seconds (11.1-14.7)
== END 2021-11-15 10:34 | disposition home or self-care (01) ==
LOC: ANHSURGERY 10:36
PROVIDERS: PCP Family Medicine Adolescent Medicine; Visit Provider Surgery
DX: C18.9 Malignant neoplasm of colon, unspecified (principal); Z01.818 Encounter for other preprocedural examination
CPT/HCPCS: 36415; 85025; 85610; 85730

== ENCOUNTER 2021-11-17 01:24 | Day surgery (SDC) | payer MEDICARE, SELFPAY ==
[2021-11-11 15:11] VITALS: BMI 33.3
--- NOTE | 2021-11-11 15:25 | PC.NURSE ---
PRE-OP INSTRUCTIONS, PLEASE READ CAREFULLY Report to the Outpatient Waiting Room, entrance under the green pavilion located off [facility], at time _1100_ on date _11/17/21_. OR Time: _1 PM_. - You and your visitor will be asked to self-screen and do not enter if you have any COVID symptoms. - Only one visitor and NO children visitors are allowed at this time. - The patient visitor is requested to leave or wait in car when not with patient due to restrictions. - A mask is required within the hospital. Patients may have clear liquids (water, carbonated beverages, clear teas, apple juice) until 3 hours prior to surgery (1000 AM) with a maximum of 20 ounces. - No food from midnight until time of surgery Take the following medications with a SIP of water the morning of surgery: __VALSARTAN, TRAMADOL IF NEEDED__ Medications to discontinue per ANESTHESIA - _GLUCOSAMINE CHONDROITIN, MULTIVITAMIN 3 DAYS PRIOR TO SURGERY, Date to take last dose 11/13/21_ Please no make-up, nail divehi, hairspray, perfume, deodorant, or body powder the day of surgery. No jewelry (including any body piercings) or valuables the day of surgery, leave them at home. Please take a shower or bath the night before, or the morning of, surgery with an antibacterial soap. Wear comfortable, loose fitting clothing. - Jewelry must be removed prior to entering the operating room. Rings and piercings that are not removed may be cut off. - The hospital will not accept responsibility for valuables. - Please leave all valuables, including medications, at home the day of surgery. If you are going home after surgery, a licensed hydraulic lift driver must drive you home. - NO public transportation without another adult. - We recommend that an adult stay with you for 24 hours following discharge. - We also recommend that you do not drive, make important decision, drink alcoholic beverages, or take any drugs that were not prescribed by your health care provider for at least 24 hours after your discharge time. Follow any additional instructions given to you from your surgeon. If you or anyone in your household have experienced Covid symptoms in the past week, please notify your surgeon or the nurse liaison at the phone number below for possible testing. Telephone instructions given to ___PT and asked if any additional questions and then verbalized understanding. Patient advised to call surgeon office or pre surgery nurse liaison [phone] if any additional questions.
--- NOTE | 2021-11-16 20:59 | PM.HPGS ---
History of Present Illness History of Present Illness Consent: Risks, benefits, and alternatives placement of a Port-A-Cath have been discussed and questions answered. Patient agrees to proceed with procedure. 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 She is now status post right hemicolectomy done October 14, 2021. Two hundred twenty-two lymph nodes positive for malignancy. Margins were negative. A preop CEA was 4 2. She is clinically asymptomatic she presented as an surgical patient to the hospital ?She presented to our OR and had a hand assisted, laparoscopic right colon resection for the lesions found on colonoscopy.? Dr. Bacon did her colonoscopy and cecal tumor in mid September Patient had uneventful postoperative course.? She gradually progressed through mild ileus and returned to a soft diet.? She took pain pills the last 2 days in the hospital but was mobilized and walking well when she was discharged Review of Systems Constitutional: Constitutional: Reports no additional constitutional complaints, Reports fatigue and Denies malaise Eyes: Eyes: Denies change in vision and Denies loss of vision ENT: Reports Normal hearing present, Denies change in voice, Denies dizziness, Denies hoarseness and Denies sore throat Cardiovascular: Cardiovascular: Denies chest pain, Denies leg edema and Denies dyspnea Comments: Patient a history of hypertension hyperlipidemia which she is on medications. Respiratory: Respiratory: Denies cough, Denies dyspnea and Denies wheezing Gastrointestinal: Gastrointestinal: Denies hematochezia, Denies change in bowel habits and Denies heartburn Comments: History of GERD medications Genitourinary: Genitourinary: Denies urinary frequency and Denies urinary incontinence Musculoskeletal: Comments: history arthralgias. Had both hip & back surgery. Neurologic: Reports Normal hearing present, Denies confusion, Denies dizziness, Denies loss of vision, Denies memory loss and Denies seizure-like activity Psychiatric: Psychiatric: Denies confusion, Denies depression and Denies memory loss Endocrine: Endocrine: Denies cold intolerance and Reports fatigue Hematologic/Lymphatic: Hematologic/Lymphatic: Denies easy bleeding and Denies easy bruising Allergic/Immunologic: Allergic/Immunologic: Denies wheezing PMFSH Past Medical History Medical History Arthritis Family hx of colon cancer Fibromyalgia Hx of adenomatous colonic polyps Hyperlipidemia Hypertension Juvenile Hoa's syndrome Obese Surgical History Surgical History History of back surgery History of bilateral hip replacements History of right hemicolectomy (10/2021) Cecal cancer Family History Family History Mother Colon cancer Grandparent Colon cancer Sibling Melanoma Breast cancer Heart disease Father Heart disease Other Cerebrovascular accident Social History Social History Smoking packs per day: 0.5 Smoking cigarettes per day: 10.0 Years smoked: 5 Smoking pack-years: 2.50 Smoking status: Former smoker Tobacco type: cigarettes Second hand tobacco smoke exposure: No Smoking end date: 04/03/89 Alcohol intake: never Drinks per week: 1 Alcohol use details: Socially Substance use: never Substance use type: does not use Living arrangements: alone Gender identity (if verbalized by the patient): Female Sexual Orientation (if Verbalized by the Patient): Straight or Heterosexual Spiritual care concerns: No Agree to blood products: Yes Meds Home Medications and Allergies Home Medications Medication Instructions
--- NOTE | ~2021-11-17 | XR_ITS ---
EXAMINATION: XR chest port-a-cath/central INDICATION: Port-A-Cath insertion TECHNIQUE: Portable AP chest at 1430 hours COMPARISON: 06/18/2021 FINDINGS: There has been insertion of a right internal jugular Port-A-Cath ends with its tip at the d istal superior vena cava. The lungs are free of acute opacities. No pleural effusion or pneumothorax. IMPRESSION: 1. Right internal jugular Port-A-Cath insertion. No pneumothorax. Reviewed, dictated and finalized at location A.
--- NOTE | ~2021-11-17 | XR_ITS ---
EXAMINATION: XR fl guide central line place INDICATION: Port-A-Cath insertion TECHNIQUE: Two intraoperative fluoroscopic images are submitted for review. Total fluoroscopic time w as 28.5 seconds. COMPARISON: None available FINDINGS: Fluoroscopic images demonstrate a right internal jugular Port-A-Cath ending with its tip at the distal superior vena cava. Please refer to procedure note for full details. IMPRESSION: 1. Right internal jugular Port-A-Cath insertion. Please refer to procedure note for full details. Reviewed, dictated and finalized at location A.
[2021-11-17] MEDS: LACTATED RINGERS 1,000 ML 30 ML IV CONT (11:42)
[2021-11-17 11:52] VITALS: BP 155/76; PULSE 80; RESP 16; TEMP 36.3; O2SAT 97
--- NOTE | 2021-11-17 12:13 | WPDANESEPPF ---
Anes - Initial Pre Proc Eval Procedure: Operation Date: 11/17/21 13:00 Proposed Procedures p Insertion Sulaiman Cath - Carlito Evans MD Date/Time: 11/17/21 12:13 Surgeon: Carlito Evans MD Pre Op Diagnosis: Malignant of Neoplasm of Colon Patient Data Age: 71 Gender: F Height: 1.57 m Weight: 82 kg Last Vital Signs Temp 36.3 C L 11/17/21 11:52 Pulse 80 11/17/21 11:52 Resp 16 11/17/21 11:52 BP 155/76 H 11/17/21 11:52 Pulse Ox 97 11/17/21 11:52 O2 Del Method Room Air 11/17/21 11:52 Allergies Allergy/AdvReac Type Severity Reaction Status Date / Time codeine Allergy Mild unsure Verified 11/17/21 11:33 Home Medications Medication Instructions Recorded Confirmed Type multivitamin (Daily Multi-Vitamin 1 tablet PO DAILY 10/18/19 11/17/21 History tablet) atorvastatin 20 mg tablet 20 mg PO HS 06/14/21 11/17/21 History glucosamine 750 lp-[id number] 1 tablet PO BID 06/14/21 11/17/21 History no1 644 mg-C 30 mg-luis 1 mg tablet (Osteo Bi-Flex Triple Strength) ipratropium bromide 42 mcg (0.06 2 spray intranasal BID PRN Runny 06/14/21 11/17/21 History %) nasal spray Nose valsartan 160 mg tablet 160 mg PO DAILY #30 tabs 08/09/21 11/17/21 Rx pantoprazole 40 mg tablet,delayed 40 mg PO QAM 4 weeks #28 tabs 09/14/21 11/17/21 Rx release (Protonix) tramadol 50 mg tablet 50 mg PO Q6H PRN pain #120 tabs 09/21/21 11/17/21 Rx docusate sodium 100 mg capsule 100 mg PO BID #30 caps 10/15/21 11/17/21 Rx (Colace) Patient hx anesthesia problems: none Family hx anesthesia problems: none Results Review: All pre-operative results and documents have been reviewed as part of the pre-operative evaluation. [facility] Past Medical History Medical History Arthritis Family hx of colon cancer Fibromyalgia Hx of adenomatous colonic polyps Hyperlipidemia Hypertension Juvenile Hoa's syndrome Obese Surgical History Surgical History History of back surgery History of bilateral hip replacements History of right hemicolectomy (10/2021) Cecal cancer Family History Family History Mother Colon cancer Grandparent Colon cancer Sibling Melanoma Breast cancer Heart disease Father Heart disease Other Cerebrovascular accident Social History Social History Smoking packs per day: 0.5 Smoking cigarettes per day: 10.0 Years smoked: 5 Smoking pack-years: 2.50 Smoking status: Former smoker Tobacco type: cigarettes Second hand tobacco smoke exposure: No Smoking end date: 04/03/89 Alcohol intake: never Drinks per week: 1 Alcohol use details: Socially Substance use: never Substance use type: does not use Living arrangements: alone Gender identity (if verbalized by the patient): Female Sexual Orientation (if Verbalized by the Patient): Straight or Heterosexual Spiritual care concerns: No Agree to blood products: Yes Anes - Eval Final PreProcedure Day of Procedure 11/17/21 12:13 Patient weight: obese Heart: regular rate and rhythm Lungs: clear to auscultation Airway: Mallampati scale class II Neurological: alert and oriented Last oral intake: >/= 8 hours ASA classification: III Emergent: no Anesthetic plan: proceed Anesthesia type and monitoring: general GIVS and standard monitoring Results Review: All pre-operative results and documents have been reviewed as part of the pre-operative evaluation. Informed Consent: The patient's anesthetic plan and its attendant risks and benefits were discussed with the patient/family/POA. Questions were solicited and answers provided to the satisfaction of the patient/family/POA.
--- NOTE | 2021-11-17 12:49 | WPDHPUPDATE1 ---
History and Physical Update Update Date/Time: 11/17/21 12:49 History and Physical has been reviewed, including an updated exam of the patient. There are NO changes in the patient's condition. Risks, benefits, and alternatives have been discussed and questions answered. Patient agrees to proceed with procedure.
[2021-11-17] MEDS: KETOROLAC 15 MG/ML VIAL (*BKC) IV PUSH (12:52)
[2021-11-17] MEDS: ceFAZolin 2 GM/D5W 50 ML 2 GM/50 ML BAG IVPB (13:07)
[2021-11-17] MEDS: HEPARIN SODIUM 5,000 UNITS/ML VIAL 5000 UNITS IRRIGATION (13:34)
[2021-11-17] MEDS: BUPIVACAINE/EPINEPHRINE 0.25% 50 ML VIAL 12 ML INFILTRATE (13:52)
--- NOTE | 2021-11-17 14:16 | W.PM.PROC2 ---
Procedure Note - Detailed Date of Procedure 11/17/21 Pre-op Diagnosis Malignant of Neoplasm of Colon Post-op Diagnosis Same Procedure Performed 1. Placement of Sulaiman-cath. 2. Use of US for vascular access site selection and visualization of needle access to vein. Surgeon Carlito Evans MD Impregnator Amy DOMINGO.OR first responder Anesthesia Local (with 0.5% Marcaine with epinepherine) and Other (GIVS) Indications Patient has had a recent colon resection for adenocarcinoma of the colon. Several nodes were positive so she is planning chemotherapy with Dr. Leiva. She needs long-term central venous access. Findings Normal vascular anatomy of the right neck by ultrasound. Description of Procedure Patient was seen and marked in the pre-op area prior to coming to the OR. Patient was brought to the operating room. Patient was placed supine on the operating table and general IV sedation was induced. The nurse transliterator provided And continuous monitoring, oxygen, and IV sedation or general anesthesia with IV sedation as was appropriate for the patient's condition. See anesthesia notes). Patient's head was carefully turned to the left side while in the supine position and the patient's entire neck and anterior chest on both sides was prepped and draped in the usual sterile fashion. Following this the appropriate time-out was completed confirming procedure and patient. We confirmed that all the needed equipment was present in the room including the vascular ultrasound probe in machine. Following this the ultrasound probe was draped into the field and using the probe we carefully identified the carotid artery and jugular vein on the right neck. I then saved an image of the vascular anatomy of the neck, which documented the selected vessels patency and transferred it from the ultrasound machine to the [employer] chart. I marked the skin directly over the right internal jugular vein. I then used an 11 blade knife to make a small ning in the skin. Following this, using the continuous ultrasound guidance, a Cook needle was placed through the skin incision and on into this vein. I then was able to draw back good dark blood. Once this was completed a guidewire using a J-tip was advanced through the needle and then the needle and the guidewire cover were withdrawn. C-arm fluoroscopy was used to confirm that the guidewire was nicely in the central venous system. Once this was confirmed with the C - arm, I preceded on by making the pocket for the port on the patient's anterior right chest approximately 3 centimeters below the clavicle overlying the chest wall. Local anesthetic was infiltrated into the skin where there was a transverse incision marked out. Incision was made and we made a pocket inferior to the incision with just a little dissection superior. The Bard low-profile Smart port was tried in the pocket and seemed to fit well. Following this the catheter which had been placed on a tunneling device was tunneled from the port site on the anterior right chest up to the right neck where the small incision had been made slightly larger with an #11 blade knife. Then the catheter was pulled through so that we would have 15 centimeters to put into the central venous system once the dilation took place. Following this we placed the dilator and sheath over the guidewire in the jugular vein and carefully dilated the tract into the central venous system. The guidewire and dilator were then removed, carefully covering the end of the sheath to prevent air embolus. The end of the catheter which had been removed from the tunneling device and the tip checked was then inserted into the sheath and into the neck. I then carefully pulled the 2 arms of the tear-away sheath away as the assistant chief nursing officer held the catheter in position with a DeBakey forceps. Following this we checked the position of the catheter with C-arm fluoroscopy confirming that the tip seemed to be in the distal super
[2021-11-17 14:20] VITALS: BP 113/76; PULSE 76; RESP 12; O2SAT 97
[2021-11-17 14:50] VITALS: BP 169/70; PULSE 68; RESP 16
[2021-11-17 15:20] VITALS: BP 157/71; PULSE 68; RESP 16
== END 2021-11-17 15:35 | disposition home or self-care (01) ==
PROVIDERS: PCP Family Medicine Adolescent Medicine; Visit Provider Surgery
PROC: (CPT 36561; principal; 2021-11-17 13:00)
DX: C18.9 Malignant neoplasm of colon, unspecified (principal); I10 Essential (primary) hypertension; E78.5 Hyperlipidemia, unspecified; M02.30 Reiter's disease, unspecified site; M79.7 Fibromyalgia; D50.9 Iron deficiency anemia, unspecified; E66.9 Obesity, unspecified; Z68.33 Body mass index [BMI] 33.0-33.9, adult; Z90.49 Acquired absence of other specified parts of digestive tract; Z87.891 Personal history of nicotine dependence; Z80.0 Family history of malignant neoplasm of digestive organs
CPT/HCPCS: 36561; 36415; 76937; 77001; 85025; 85610; 85730; C1788; J0690; J1644; J1885; J3010; J7030; J7120

== ENCOUNTER 2022-06-07 08:14 | Outpatient (CLI) | payer MEDICARE, SELFPAY ==
--- NOTE | ~2022-06-07 | CT_ITS ---
EXAMINATION: CT abdomen pelvis w con DATE: 06/07/2022 08:45 INDICATION: Cecal cancer. TECHNIQUE: Computed tomography (CT) of the abdomen and pelvis was performed with 100 mL Omnipaque 350 intravenous contrast. Automated exposure control and iterative reconstruction technique were employe d. The dose-length product was 702.54 mGy-cm. COMPARISON: CT abdomen and pelvis 11/12/2021 FINDINGS: The visualized portions of the lung bases demonstrate mild atelectasis. No pleural effusion . The heart size is normal. No pericardial effusion. The liver is normal. There are gallstones in the gallbladder, which is normal in size. The spleen, pancreas, and adrenal glands are normal. There are cysts in the kidneys including peripelvic cysts measuring up to 2.1 cm on the left. There is an ileo rectal anastomosis. There are no pathologically enlarged lymph nodes. There is trace pelvic ascites. There are bilateral hip arthroplasties. There are changes of posterior fusion procedure from L4 to S1 . There is severe lumbar spondylosis. IMPRESSION: 1. No evidence of metastatic disease. Reviewed, dictated and finalized at location A. ON PI[employer]URE ACTOR
== END 2022-06-07 08:15 | disposition home or self-care (01) ==
PROVIDERS: PCP Family Medicine Adolescent Medicine; Visit Provider Internal Medicine Hematology & Oncology
DX: C18.0 Malignant neoplasm of cecum (principal)
CPT/HCPCS: 36415; 74177; 80053; 82378; 85025; Q9967

== ENCOUNTER 2022-09-05 06:49 | Day surgery (SDC) | payer MEDICARE, SELFPAY ==
[2022-08-23 09:50] VITALS: BMI 27.3
[2022-09-05 07:25] VITALS: BMI 27.4
[2022-09-05 07:26] VITALS: BP 135/78; PULSE 78; RESP 18; TEMP 36.6; O2SAT 100
--- NOTE | 2022-09-05 07:32 | WPDANESEPPF ---
Anes - Initial Pre Proc Eval Procedure: Operation Date: 09/05/22 08:30 Proposed Procedures p Diagnostic Colonoscopy - Kamran Bacon MD Date/Time: 09/05/22 07:32 Surgeon: Kamran Bacon MD Pre Op Diagnosis: Malignant Appearing Colonic Mass at Cecum Patient Data Age: 72 Gender: F Height: 1.57 m Weight: 68.1 kg Last Vital Signs Temp 36.6 C 09/05/22 07:26 Pulse 78 09/05/22 07:26 Resp 18 09/05/22 07:26 BP 135/78 09/05/22 07:26 Pulse Ox 100 09/05/22 07:26 O2 Del Method Room Air 09/05/22 07:26 Allergies Allergy/AdvReac Type Severity Reaction Status Date / Time codeine Allergy Mild unsure Verified 09/05/22 07:32 Home Medications Medication Instructions Recorded Confirmed Type multivitamin (Daily Multi-Vitamin 1 tablet PO DAILY 10/18/19 08/23/22 History tablet) ipratropium bromide 42 mcg (0.06 2 spray intranasal BID PRN Runny 06/14/21 08/23/22 History %) nasal spray Nose lidocaine-prilocaine 2.5 %-2.5 % See Rx Instructions .Route .COMPLEX 11/24/21 08/23/22 History topical cream potassium chloride 20 mEq 20 meq PO DAILY 12/08/21 08/23/22 History tablet,extended release aspirin 81 mg tablet 81 mg PO DAILY 01/05/22 08/23/22 History pantoprazole 40 mg tablet,delayed See Rx Instructions .Route 03/25/22 08/23/22 Rx release .COMPLEX #30 tabs atorvastatin 20 mg tablet 20 mg PO HS #90 tabs 03/31/22 08/23/22 Rx tramadol 50 mg tablet 50 mg PO Q6H PRN pain #120 tabs 06/30/22 08/23/22 Rx valsartan 160 mg tablet 160 mg PO DAILY #30 tabs 07/12/22 08/23/22 Rx sodium,potassium,mag sulfates 17.5 See Rx Instructions PO .COMPLEX 07/19/22 Rx gram-3.13 gram-1.6 gram oral soln #354 mL (Suprep Bowel Prep Kit) ferrous sulfate 325 mg (65 mg 325 mg PO BID #60 tabs 08/30/22 Rx iron) tablet Patient hx anesthesia problems: none Family hx anesthesia problems: none Results Review: All pre-operative results and documents have been reviewed as part of the pre-operative evaluation. [facility] Past Medical History Medical History (Updated 07/18/22 @ 11:47 by Home Brown MD) Arthritis Fibromyalgia Hx of adenomatous colonic polyps Hyperlipidemia Hypertension ANTWAN (iron deficiency anemia) Juvenile Hoa's syndrome Obese Surgical History Surgical History History of back surgery History of bilateral hip replacements History of right hemicolectomy (10/2021) Cecal cancer Family History Family History Mother Colon cancer Grandparent Colon cancer Sibling Melanoma Breast cancer Heart disease Father Heart disease Other Cerebrovascular accident Social History Social History Smoking packs per day: 0.5 Smoking cigarettes per day: 10.0 Years smoked: 5 Smoking pack-years: 2.50 Smoking status: Never smoker Tobacco type: cigarettes Second hand tobacco smoke exposure: No Smoking end date: 04/03/88 Alcohol intake: never Drinks per week: 1 Alcohol use details: Socially Substance use: never Substance use type: does not use Living arrangements: with family Occupation/Education: retired Gender identity (if verbalized by the patient): Female Sexual Orientation (if Verbalized by the Patient): Straight or Heterosexual Spiritual care concerns: No Agree to blood products: Yes Anes - Eval Final PreProcedure Day of Procedure 09/05/22 07:32 Patient weight: overweight Heart: regular rate and rhythm Lungs: clear to auscultation Airway: Mallampati scale class II Neurological: alert and oriented Last oral intake: >/= 8 hours ASA classification: III Emergent: no Anesthetic plan: proceed Anesthesia type and monitoring: general GIVS and standard monitoring Results Review: All pre-operative results and documents have been reviewed as part of the pre-operative evaluation.
[2022-09-05] MEDS: LACTATED RINGERS 1,000 ML 150 ML IV CONT (07:53)
--- NOTE | 2022-09-05 07:53 | PM.HPGS ---
History of Present Illness History of Present Illness Consent: Risks, benefits, and alternatives have been discussed and questions answered. Patient agrees to proceed with procedure. Chief complaint: Malignant Appearing Colonic Mass at Cecum Narrative: Sondra Lubin is a 72 year old female Presents for screening colonoscopy. One year ago was found to have a large cecal mass. This underwent surgical resection. It was found to be adenocarcinoma of the colon. patient presents today for surveillance colonoscopy. One year after resection. She states bowel habits have now returned to normal. She has no had no additional bleeding. Her bowel habits have remained normal. Family history noncontributory. Review of Systems Review of Systems: Review of systems noncontributory. [facility] Past Medical History Medical History (Updated 07/18/22 @ 11:47 by Home Brown MD) Arthritis Fibromyalgia Hx of adenomatous colonic polyps Hyperlipidemia Hypertension ANTWAN (iron deficiency anemia) Juvenile Hoa's syndrome Obese Surgical History Surgical History History of back surgery History of bilateral hip replacements History of right hemicolectomy (10/2021) Cecal cancer Family History Family History Mother Colon cancer Grandparent Colon cancer Sibling Melanoma Breast cancer Heart disease Father Heart disease Other Cerebrovascular accident Social History Social History Smoking packs per day: 0.5 Smoking cigarettes per day: 10.0 Years smoked: 5 Smoking pack-years: 2.50 Smoking status: Never smoker Tobacco type: cigarettes Second hand tobacco smoke exposure: No Smoking end date: 04/03/88 Alcohol intake: never Drinks per week: 1 Alcohol use details: Socially Substance use: never Substance use type: does not use Living arrangements: with family Occupation/Education: retired Gender identity (if verbalized by the patient): Female Sexual Orientation (if Verbalized by the Patient): Straight or Heterosexual Spiritual care concerns: No Agree to blood products: Yes Meds Home Medications and Allergies Home Medications Medication Instructions Recorded Confirmed Type multivitamin (Daily Multi-Vitamin 1 tablet PO DAILY 10/18/19 09/05/22 History tablet) ipratropium bromide 42 mcg (0.06 2 spray intranasal BID PRN Runny 06/14/21 09/05/22 History %) nasal spray Nose lidocaine-prilocaine 2.5 %-2.5 % See Rx Instructions .Route .COMPLEX 11/24/21 08/23/22 History topical cream potassium chloride 20 mEq 20 meq PO DAILY 12/08/21 09/05/22 History tablet,extended release aspirin 81 mg tablet 81 mg PO DAILY 01/05/22 09/05/22 History pantoprazole 40 mg tablet,delayed See Rx Instructions .Route 03/25/22 09/05/22 Rx release .COMPLEX #30 tabs atorvastatin 20 mg tablet 20 mg PO HS #90 tabs 03/31/22 09/05/22 Rx tramadol 50 mg tablet 50 mg PO Q6H PRN pain #120 tabs 06/30/22 09/05/22 Rx valsartan 160 mg tablet 160 mg PO DAILY #30 tabs 07/12/22 09/05/22 Rx sodium,potassium,mag sulfates 17.5 See Rx Instructions PO .COMPLEX 07/19/22 Rx gram-3.13 gram-1.6 gram oral soln #354 mL (Suprep Bowel Prep Kit) ferrous sulfate 325 mg (65 mg 325 mg PO BID #60 tabs 08/30/22 09/05/22 Rx iron) tablet Allergies Allergy/AdvReac Type Severity Reaction Status Date / Time codeine Allergy Mild unsure Verified 09/05/22 07:32 Vital Signs Vital Signs - 24 hr 09/05/22 07:26 Temperature 97.8 F Pulse Rate 78 Respiratory Rate 18 Blood Pressure 135/78 Pulse Oximetry 100 Oxygen Delivery Room Air Exam Narrative: Physical exam reveals patient to be alert. Vital signs stable. HEENT exam is unremarkable. Patient is anicteric. Lungs are clear to auscultation and percussion. Heart is without murmur or
[2022-09-05 08:49] VITALS: BP 108/94; PULSE 77; RESP 15; O2SAT 99
[2022-09-05 08:59] VITALS: BP 123/64; PULSE 77; RESP 15; O2SAT 100
[2022-09-05 09:09] VITALS: BP 123/76; PULSE 86; RESP 15; O2SAT 100
--- NOTE | 2022-09-05 09:09 | SUR.PHASEII ---
follow-up call to suze Chanda was made- information of procedure was given
--- NOTE | 2022-09-05 10:54 | WPDANESPN ---
Anes - Prog Note Post-Op Date/Time: 09/05/22 10:54 Cardiovascular status: normal Respiratory status: normal Airway patency: baseline Mental status: baseline Post-Op hydration status: normal Vital Signs: Last Vital Signs Temp 36.6 C 09/05/22 07:26 Pulse 86 09/05/22 09:09 Resp 15 09/05/22 09:09 BP 123/76 09/05/22 09:09 Pulse Ox 100 09/05/22 09:09 O2 Del Method Room Air 09/05/22 09:09 Pain Score (VAS): 0 I/O: Intake & Output 09/04/22 09/05/22 09/05/22 23:59 07:59 15:59 Intake Total 300 Balance 300 Post-procedural complaints: none Patient Feedback: Patient satisfied with anesthetic care.
== END 2022-09-05 09:31 | disposition home or self-care (01) ==
PROVIDERS: PCP Family Medicine Adolescent Medicine; Visit Provider Internal Medicine Gastroenterology
PROC: 0DJD8ZZ Inspection of Lower Intestinal Tract, Via Natural or Artificial Opening Endoscopic (ICD-10-PCS; CPT 45378; principal; 2022-09-05 08:30)
DX: Z85.038 Personal history of other malignant neoplasm of large intestine (principal)
CPT/HCPCS: 45378

== ENCOUNTER 2022-09-20 08:54 | Outpatient (CLI) | payer MEDICARE, SELFPAY ==
[2022-09-20 12:12] LABS: Cholesterol 150 mg/dL (0-200); HDL Direct 74 mg/dL; Triglycerides 115 mg/dL (<150)
[2022-09-20 12:23] LABS: LDL Cholesterol Direct 48 mg/dL
== END 2022-09-20 08:55 | disposition home or self-care (01) ==
LOC: ANHLAB 08:55
PROVIDERS: PCP Family Medicine Adolescent Medicine; Visit Provider Internal Medicine Hematology & Oncology
DX: E78.5 Hyperlipidemia, unspecified (principal)
CPT/HCPCS: 36415; 80053; 80061; 82378; 85025

== ENCOUNTER → 2022-11-01 11:04 | Outpatient (CLI) | payer MEDICARE, SELFPAY ==
--- NOTE | ~2022-11-01 | DEXA_ITS ---
Bone Density Report Name: MARCELLA JOY Age: 72 Sex: Female Ethnicity: White Date of : 1950 Indication: postmenopausal; screening for osteoporosis; height loss; prior fracture; Referring Provider: ADAM RIVAS Study: Bone densitometry was performed. Exam Date: November 01, 2022 Accession number: [id number] Bone Density: Region BMD T-score Z-score Classification AP Spine (L1, L2, L3) 1.157 1.3 3.5 Normal World Health Organization criteria for BMD impression classify patients as: Normal (T-score at or above -1.0), Osteopenia (T-score between -1.0 and -2.5), or Osteoporosis (T-score at or below -2.5). Previous Exams: Region Exam Age BMD T-score BMD Change BMD Change Date g/cm2 vs Baseline vs Previous AP Spine(L1, L2, L3) 11/01/2022 72 1.157 1.3 -0.043* -0.043* 07/12/2016 65 1.199 1.6 *Denotes significance at 95% confidence level, LSC for AP Spine = 0.022 g/cm2 Clinical Information Provided by Patient: Have had a previous hip or vertebral fracture Has had a low trauma fracture Patient maximum height was 63.0 Menopause Age: 51 No regular weight bearing exercise Drinks caffeinated beverages Onset of menses at age 14 Number of children 2 Impression: The patient has normal bone mass. The patient has risk factors, including: previous fracture. The BMD for the AP Spine(L1, L2, L3) decreased, changing by -0.043 since the last DXA exam. Discussion: INCREASED RISK OF FRACTURE DUE TO HISTORY OF FRACTURE. The patient's previous fracture puts the patient at high risk of a future fracture. In untreated patients, the risk of osteoporotic fracture increases approximately two-fold for each 1.0 SD decrease in T-score. Low bone density is not the only risk factor for fracture; also consider factors such as patient's age, frailty or poor health, risk of falling, risk of injury, previous osteoporotic fracture, family history of osteoporosis, cigarette smoking, low body weight, etc. Not everyone with a low trauma fracture has osteoporosis; osteomalacia and other metabolic bone disorders should also be considered. Patients who have osteoporosis should be evaluated for specific diseases and conditions (secondary causes) that may cause or contribute to bone loss and fracture risk. National Osteoporosis Foundation (NOF) recommends pharmacologic intervention for patients with a prior hip or vertebral fracture regardless of BMD T-score. The patient should follow a healthful lifestyle (good nutrition with adequate calcium and vitamin D, and appropriate weight-bearing exercise). Follow-Up: Consider a repeat BMD and Vertebral Fracture Assessment (VFA) exam in 2 years or sooner if medically necessary, to reassess this patient's status.
== END ==
PROVIDERS: PCP Family Medicine Adolescent Medicine; Visit Provider Family Medicine Adolescent Medicine
DX: Z78.0 Asymptomatic menopausal state (principal)
CPT/HCPCS: 77080

== ENCOUNTER 2022-12-12 08:19 | Outpatient (CLI) | payer MEDICARE, SELFPAY ==
--- NOTE | ~2022-12-12 | CT_ITS ---
CT of the Abdomen and Pelvis: Indication: Cecal cancer Technique: 2.5 mm axial scans were obtained through the abdomen and pelvis following intravenous adm inistration of 100 cc of Omnipaque 350. Dose reduction technique was used on this scan by utilizing a utomated exposure control and iterative reconstruction technique. The dose-length product (DLP) was 7 63.60 mGy-cm. COMPARISON: 06/07/2022 Findings: Scans through the lung bases demonstrate stable 5 mm nodule at the left lung base. The liver, spleen, pancreas, adrenals and kidneys are within normal limits. Small calcified gallstone s are present. No evidence of aortic aneurysm. No lymphadenopathy. No bowel obstruction or bowel wall thickening. Evidence of prior right colonic resection.. Images through the pelvis are degraded by streak artifact from bilateral hip arthroplasty. Urinary bl adder grossly unremarkable. No definite pelvic mass seen. No ascites. Impression: No evidence for active malignancy or metastatic disease. Stable 5 mm left basilar pulmonary nodule. Cholelithiasis. Reviewed, dictated and finalized at location . Impression: No evidence for active malignancy or metastatic disease. Stable 5 mm left basilar pulmonary nodule. Cholelithiasis.
[2022-12-12 08:41] LABS: Estimated Glomerular Filt Rate > 60
== END 2022-12-12 08:20 | disposition home or self-care (01) ==
PROVIDERS: PCP Family Medicine Adolescent Medicine; Visit Provider Internal Medicine Hematology & Oncology
DX: C18.0 Malignant neoplasm of cecum (principal); R91.1 Solitary pulmonary nodule; K80.20 Calculus of gallbladder without cholecystitis without obstruction
CPT/HCPCS: 74177; Q9967

== ENCOUNTER 2023-07-17 08:08 | Outpatient (CLI) | payer MEDICARE, SELFPAY ==
--- NOTE | ~2023-07-17 | CT_ITS ---
EXAMINATION: CT abdomen pelvis w con DATE: 07/17/2023 08:43 INDICATION: Cecal cancer TECHNIQUE: Computed tomography (CT) of the abdomen and pelvis was performed with 100 mL Omnipaque-350 intravenous contrast. Automated exposure control and iterative reconstruction technique were employe d. The dose-length product was 869.63 mGy-cm. COMPARISON: 12/12/2022 FINDINGS: Lung bases are clear. Heart size is normal. No pericardial or pleural effusion. Central venous cathet er extends caudally along the superior vena cava with distal tip in the high right atrium. Small michelle on of focal hepatic steatosis at the ligamentum teres. There are few small calcified gallstones in th e dependent aspect of the normal gallbladder. No intra or extra hepatic biliary ductal dilation. Sple en, pancreas and bilateral adrenal glands are normal. Parapelvic cysts at the bilateral kidneys. Ther e is fluid in the proximal colon consistent with nonspecific diarrhea. Likely prior appendectomy with suture line at the tip the cecum. No bowel obstruction. Surgical scar at the umbilicus with small wi demouthed fat-containing umbilical hernia. Visualized portion of the bladder appears normal with a po sterior bladder obscured by dense metallic streak artifact from bilateral total hip arthroplasties. U terus and bilateral adnexa are unremarkable. No free intraperitoneal gas or fluid. No pathologically enlarged abdominal or pelvic lymphadenopathy. Instrumented L4-S1 posterior spinal fusion. 12 mm anter olisthesis L5 on S1 with anterior spinal fusion without instrumentation. IMPRESSION: 1. Cholelithiasis. 2. Fluid in the colon consistent with nonspecific diarrhea. Correlate clinically for gastroenteritis. Reviewed, dictated and finalized at location A. IMPRESSION: 1. Cholelithiasis. 2. Fluid in the colon consistent with nonspecific diarrhea. Correlate clinicall y for gastroenteritis.
[2023-07-17 08:34] LABS: Estimated Glomerular Filt Rate > 60
== END 2023-07-17 08:09 | disposition home or self-care (01) ==
PROVIDERS: PCP Family Medicine Adolescent Medicine; Visit Provider Internal Medicine Hematology & Oncology
DX: C18.0 Malignant neoplasm of cecum (principal); K80.20 Calculus of gallbladder without cholecystitis without obstruction
CPT/HCPCS: 36415; 74177; 80053; 82378; 85025; Q9967

== ENCOUNTER 2023-08-14 01:54 | Day surgery (SDC) | payer MEDICARE, SELFPAY ==
--- NOTE | 2023-08-07 10:29 | PC.NURSE ---
Report to the Outpatient Waiting Room, entrance under the green pavilion located off [facility], at time __1:00 PM on date __08/14/23 . Planned Procedure Time: __3:00 PM . Time changes happen often and if your time is changed the preop area will call you the afternoon before. - You and your visitor will be asked to self-screen and do not enter if you have any COVID symptoms. - A mask is optional within the hospital at this time. Patients may have clear liquids (water, carbonated beverages, clear teas, apple juice) until 3 hours prior to surgery( NOON) with a maximum of 20 ounces. - No food from midnight until time of surgery - Infants may have breast milk until 4 hours before surgery, formula 6 hours prior to surgery. - Children will be allowed to drink immediately following surgery. If applicable, please bring a bottle or sippy cup to assist with drinking. Juice, water, soda, and popsicles are readily available. For infants on formula, please bring formula the day of surgery. Pacifiers are allowed. Take the following medications with a SIP of water the morning of surgery: NONE DO NOT STOP ANY OF YOUR OTHER PRESCRIPTION MEDICATIONS PRIOR TO SURGERY ?EXCEPT THE FOLLOWING Medications to discontinue per physician ALL VITAMINS 3 DAYS PRE OP.LAST DOSE 08/10/23 Please no make-up, nail spanish, hairspray, perfume, deodorant, or body powder the day of surgery. No jewelry (including any body piercings) or valuables the day of surgery, leave them at home. Please take a shower or bath the night before, or the morning of, surgery with an antibacterial soap. Wear comfortable, loose fitting clothing. Children are encouraged to wear pajamas. - Jewelry must be removed prior to entering the operating room. Rings and piercings that are not removed may be cut off. - The hospital will not accept responsibility for valuables. - Please leave all valuables, including medications, at home the day of surgery. If you are going home after surgery, a licensed courier driver must drive you home. - NO public transportation without another adult if you receive anesthesia. - We recommend that an adult stay with you for 24 hours following discharge. - We also recommend that you do not drive, make important decision, drink alcoholic beverages, or take any drugs that were not prescribed by your health care provider for at least 24 hours after your discharge time. Follow any additional instructions given to you from your surgeon. If you or anyone in your household have experienced Covid symptoms in the past week, please notify your surgeon or the nurse liaison at the phone number below for possible testing. Telephone instructions given to ___PATIENT and asked if any additional questions and then verbalized understanding. Patient advised to call surgeon office or pre surgery nurse liaison [phone] if any additional questions.
[2023-08-07 10:37] VITALS: BMI 31.8
--- NOTE | 2023-08-14 12:22 | WPDANESEPPF ---
Anes - Initial Pre Proc Eval Procedure: Operation Date: 08/14/23 14:00 Proposed Procedures p Removal Sulaiman Cath - Byron Shetty MD Date/Time: 08/14/23 12:22 Surgeon: Byron Shetty MD Pre Op Diagnosis: colon CA Patient Data Age: 73 Gender: F Height: 1.57 m Weight: 78.99 kg Allergies Allergy/AdvReac Type Severity Reaction Status Date / Time codeine Allergy Mild unsure Verified 08/07/23 10:20 Home Medications Medication Instructions Recorded Confirmed Type multivitamin (Daily Multi-Vitamin 1 tablet PO DAILY 10/18/19 08/07/23 History tablet) ipratropium bromide 42 mcg (0.06 2 spray intranasal BID PRN Runny 06/14/21 08/07/23 History %) nasal spray Nose aspirin 81 mg tablet 81 mg PO DAILY 01/05/22 08/07/23 History pantoprazole 40 mg tablet,delayed 40 mg PO QAM #280 tabs 10/19/22 08/07/23 Rx release atorvastatin 20 mg tablet 20 mg PO HS #90 tabs 12/26/22 08/07/23 Rx tramadol 50 mg tablet 50 mg PO Q6H PRN pain #120 tabs 04/07/23 08/07/23 Rx valsartan 160 mg tablet 160 mg PO DAILY #90 tabs 04/07/23 08/07/23 Rx Patient hx anesthesia problems: none Family hx anesthesia problems: none Results Review: All pre-operative results and documents have been reviewed as part of the pre-operative evaluation. [facility] Past Medical History Medical History (Updated 07/18/22 @ 11:47 by Home Brown MD) Arthritis Fibromyalgia Hx of adenomatous colonic polyps Hyperlipidemia Hypertension ANTWAN (iron deficiency anemia) Juvenile Hoa's syndrome Obese Surgical History Surgical History History of back surgery History of bilateral hip replacements History of right hemicolectomy (10/2021) Cecal cancer Family History Family History Mother Colon cancer Grandparent Colon cancer Sibling Melanoma Breast cancer Heart disease Father Heart disease Other Cerebrovascular accident Social History Social History Smoking packs per day: 0.5 Smoking cigarettes per day: 10.0 Years smoked: 5 Smoking pack-years: 2.50 Smoking status: Former smoker Tobacco type: cigarettes Second hand tobacco smoke exposure: No Smoking end date: 04/03/88 Alcohol intake: current Drinks per week: 1 Alcohol use details: Socially Substance use: never Substance use type: does not use Living arrangements: alone Occupation/Education: retired Gender identity (if verbalized by the patient): Female Sexual Orientation (if Verbalized by the Patient): Straight or Heterosexual Spiritual care concerns: No Agree to blood products: Yes Anes - Eval Final PreProcedure Day of Procedure 08/14/23 12:22 Patient weight: obese Heart: regular rate and rhythm Lungs: clear to auscultation Airway: Mallampati scale Neurological: alert and oriented Last oral intake: >/= 8 hours ASA classification: III Emergent: no Anesthetic plan: proceed Anesthesia type and monitoring: general GIVS and standard monitoring Results Review: All pre-operative results and documents have been reviewed as part of the pre-operative evaluation. Informed Consent: The patient's anesthetic plan and its attendant risks and benefits were discussed with the patient/family/POA. Questions were solicited and answers provided to the satisfaction of the patient/family/POA.
[2023-08-14] MEDS: LACTATED RINGERS 1,000 ML 30 ML IV CONT (13:00)
[2023-08-14 13:29] VITALS: BP 131/86; PULSE 87; RESP 16; TEMP 36.6; O2SAT 99
--- NOTE | 2023-08-14 14:27 | PM.IMHP ---
H&P: HPI History of Present Illness Date/Time: 08/14/23 14:27 Chief Complaint: Needs port removed Narrative: Pt had colon CA in [address] Webber. Then had port placed by Dr. Evans 2021 and now has completed chemo tx and has no evidence of disease. She presents to have port removed. Review of Systems Review of Systems: The remainder of the review of systems to include constitutional, HEENT, cardiovascular, respiratory, GI, , integumentary, musculoskeletal, endocrine, immunologic, hematologic, psychiatric, and neurologic are all negative except for which is mentioned above in the HPI. [facility] Past Medical History Medical History Arthritis Fibromyalgia Hx of adenomatous colonic polyps Hyperlipidemia Hypertension ANTWAN (iron deficiency anemia) Juvenile Hoa's syndrome Obese Surgical History Surgical History History of back surgery History of bilateral hip replacements History of right hemicolectomy (10/2021) Cecal cancer Family History Family History Mother Colon cancer Grandparent Colon cancer Sibling Melanoma Breast cancer Heart disease Father Heart disease Other Cerebrovascular accident Social History Social History Smoking packs per day: 0.5 Smoking cigarettes per day: 10.0 Years smoked: 5 Smoking pack-years: 2.50 Smoking status: Former smoker Tobacco type: cigarettes Second hand tobacco smoke exposure: No Smoking end date: 04/03/88 Alcohol intake: current Drinks per week: 1 Alcohol use details: Socially Substance use: never Substance use type: does not use Living arrangements: alone Occupation/Education: retired Gender identity (if verbalized by the patient): Female Sexual Orientation (if Verbalized by the Patient): Straight or Heterosexual Spiritual care concerns: No Agree to blood products: Yes Meds Home Medications and Allergies Home Medications Medication Instructions Recorded Confirmed Type multivitamin (Daily Multi-Vitamin 1 tablet PO DAILY 10/18/19 08/07/23 History tablet) ipratropium bromide 42 mcg (0.06 2 spray intranasal BID PRN Runny 06/14/21 08/07/23 History %) nasal spray Nose aspirin 81 mg tablet 81 mg PO DAILY 01/05/22 08/07/23 History pantoprazole 40 mg tablet,delayed 40 mg PO QAM #280 tabs 10/19/22 08/07/23 Rx release atorvastatin 20 mg tablet 20 mg PO HS #90 tabs 12/26/22 08/07/23 Rx tramadol 50 mg tablet 50 mg PO Q6H PRN pain #120 tabs 04/07/23 08/07/23 Rx valsartan 160 mg tablet 160 mg PO DAILY #90 tabs 04/07/23 08/07/23 Rx Allergies Allergy/AdvReac Type Severity Reaction Status Date / Time codeine Allergy Mild unsure Verified 08/14/23 13:26 Vital Signs Vital Signs - 24 hr 08/14/23 13:29 Temperature 36.6 C Pulse Rate 87 Respiratory Rate 16 Blood Pressure 131/86 Pulse Oximetry 99 Oxygen Delivery Room Air Exam Const: General: comfortable and no acute distress Neck: Neck: supple and no JVD Chest: Other: Right upper anterior chest port in place with catheter inserting into right IJ vein. No rash, redness. Resp: Effort & Inspection: normal respiratory effort Auscultation: clear to auscultation bilaterally Cardio: Rate: regular rate Rhythm: regular rhythm GI: GI Palp: Yes Soft to palpation, No Firmness to palpation present (GI), No Tenderness to palpation present (GI), No Guarding due to palpation present (GI) and No Hernia present Skin: General skin exam: normal color and no rashes or lesions noted Neuro: General: gait normal Speech: normal speech Extrem: General: normal to inspection Psych: Mental Status: mental status grossly normal Affect: normal affect Assessment and Plan Assessment and plan (1) Port-A-Cath in place: Code(s):
--- NOTE | 2023-08-14 14:31 | WPDHPUPDATE1 ---
History and Physical Update Update Date/Time: 08/14/23 14:31 History and Physical has been reviewed, including an updated exam of the patient. There are NO changes in the patient's condition. Risks, benefits, and alternatives have been discussed and questions answered. Patient agrees to proceed with procedure.
[2023-08-14] MEDS: ceFAZolin 2 GM/D5W 50 ML 2 GM/50 ML BAG IVPB (14:38)
[2023-08-14] MEDS: BUPivacaine HCL 0.5% 10 ML AMP 20 ML INFILTRATE (14:58)
[2023-08-14] MEDS: LIDO 1%/EPINEPHRINE 1:100,000 20 ML VIAL INFILTRATE (14:59)
[2023-08-14 15:14] VITALS: BP 102/61; PULSE 80; RESP 12; O2SAT 97
--- NOTE | 2023-08-14 15:18 | W.PM.PROC2 ---
Procedure Note - Detailed Date of Procedure 08/14/23 Pre-op Diagnosis colon CA Post-op Diagnosis Same Surgeon Byron Shetty MD
--- NOTE | 2023-08-14 15:21 | W.PM.PROC2 ---
Procedure Note - Detailed Date of Procedure 08/14/23 Pre-op Diagnosis colon CA Post-op Diagnosis Same Procedure Performed Removal of right internal jugular vein sabrina catheter Surgeon Byron Shetty MD Anesthesia MAC Indications Patient is a 73-year-old female who in 2001 had resection of a colon cancer. She then had placement of Port-A-Cath for chemotherapy treatment. She has now completed chemotherapy treatments and no longer needs the sabrina catheter. Presents now for remove the sabrina catheter. Findings None significant. Description of Procedure After informed consent was obtained patient brought to the operating room she was placed supine position and IV sedation was administered by anesthesia. The bilateral upper anterior neck and chest was then prepped and draped usual sterile fashion. A time-out was then performed correctly identifying the patient as well as procedure to be performed. She was given perioperative IV antibiotics. The port was in the right upper anterior chest wall. 1% lidocaine mixed with 0.5% Marcaine was injected around the old scar for local anesthetic effect. A 15 blade scalp was then used to excise out the old scar in elliptical fashion. That skin was discarded. Electrocautery was then used to dissect down through the subcutaneous tissues until I had identified the hub to the port. I dissected down onto the hub and then incised electrocautery around the catheter itself. Once I had the catheter freed up from the surrounding subcutaneous tissues I then removed the catheter from the right internal jugular vein. Pressure was then held on the area the right internal jugular vein to achieve hemostasis. I then proceeded to excise the titanium port out of the subcutaneous tissues. There was no electrocautery. Once this was done the port and catheter were discarded. I then achieved hemostasis in the wound utilized electrocautery. The fibrous capsule in the incision around the port was then fulgurated utilizing electrocautery. The incision was then closed utilizing interrupted 3-0 Vicryl sutures in subcutaneous tissues. This is then followed by interrupted 3-0 Vicryl sutures the deep dermal layer. Skin edges were then approximated utilizing a running subcuticular 4 Monocryl suture. The incision was then cleaned the skin glue was applied. The patient tolerated the procedure well no complications. All sponges, needles, and instrument counts were correct at the end procedure. EBL was _2__cc. The patient was awakened and taken to recovery in stable and satisfactory condition. Implants None Estimated Blood Loss 2 Drains No Packing No Pathology None sent Complications No immediate complications Condition Stable Disposition PACU [facility] Billing Surgery - Charge Forward: Surgery Billing
[2023-08-14 15:40] VITALS: BP 139/65; PULSE 68; RESP 20
[2023-08-14 16:10] VITALS: BP 138/70; PULSE 78; RESP 20
[2023-08-14 16:20] VITALS: BP 148/72; PULSE 80; RESP 20
== END 2023-08-14 16:32 | disposition home or self-care (01) ==
PROVIDERS: PCP Family Medicine Adolescent Medicine; Visit Provider Surgery
PROC: (CPT 36589; principal; 2023-08-14 14:00)
DX: Z45.2 Encounter for adjustment and management of vascular access device (principal); I10 Essential (primary) hypertension; E78.5 Hyperlipidemia, unspecified; D50.9 Iron deficiency anemia, unspecified; E66.9 Obesity, unspecified; Z68.31 Body mass index [BMI] 31.0-31.9, adult; Z79.82 Long term (current) use of aspirin; Z79.891 Long term (current) use of opiate analgesic; Z98.890 Other specified postprocedural states; Z98.1 Arthrodesis status; Z90.49 Acquired absence of other specified parts of digestive tract; Z87.891 Personal history of nicotine dependence; Z86.010 Personal history of colon polyps; Z92.21 Personal history of antineoplastic chemotherapy; Z85.038 Personal history of other malignant neoplasm of large intestine; Z80.0 Family history of malignant neoplasm of digestive organs; Z80.3 Family history of malignant neoplasm of breast; Z80.8 Family history of malignant neoplasm of other organs or systems; Z82.49 Family history of ischemic heart disease and other diseases of the circulatory system
CPT/HCPCS: 36590; J0690; J2405; J2704; J3010; J7120

== ENCOUNTER 2023-11-15 08:47 | Outpatient (CLI) | payer MEDICARE, SELFPAY ==
[2023-11-15 09:16] LABS: Basophils Percent Auto 0.7 % (0.2-1.2); Eosinophils Absolute Auto 0.2 K/mm3 (0-0.3); Eosinophils Percent Auto 3.6 % (0-4.4); Hematocrit 42.9 % (37.0-47.0); Hemoglobin 13.9 g/dL (12.0-15.0); Immature Granulocyte Absolute 0.01 K/mm3 (0.00-0.031); Immature Granulocyte Percent A 0.2 % (0-0.5); Lymphocytes Absolute Auto 2.04 K/mm3 (0.9-3.2); Lymphocytes Percent Auto 33.4 % (18.3-44.2); Mean Corpuscular HGB Conc 32.4 g/dl (32-36); Mean Corpuscular Hemoglobin 29.3 pg (26-34); Mean Corpuscular Volume 90.5 fl (80-100); Mean Platelet Volume 9.3 fl (7.4-10.4); Monocytes Absolute Auto 0.5 K/mm3 (0.1-0.6); Neutrophils Absolute Auto 3.3 K/mm3 (1.3-6.7); Neutrophils Percent Auto 54.1 % (45.5-73.1); Platelet Count Result 273 k/mm3 (150-375); Red Blood Count 4.74 M/mm3 (4.2-5.4); Red Cell Distribution Width 13.3 % (11.5-14.5); White Blood Count 6.1 K/mm3 (4.5-10.0)
[2023-11-15 10:16] LABS: Cholesterol 169 mg/dL (0-200); HDL Direct 68 mg/dL; Triglycerides 130 mg/dL (<150)
[2023-11-15 10:19] LABS: Alanine Aminotransferase 27 U/L (6-35); Albumin Level 4.6 g/dL (3.5-5.1); Alkaline Phosphatase 107 U/L (38-126); Anion Gap 11 mmol/L (4-12); Aspartate Amino Transferase 36 U/L (14-36); Bilirubin,Total 0.7 mg/dL (0.2-1.3); Blood Urea Nitrogen 22 mg/dL (7-17); Calcium 9.3 mg/dL (8.4-10.2); Carbon Dioxide 24 mmol/L (22-30); Chloride 102 mmol/L (98-107); Estimated Glomerular Filt Rate > 60; Glucose 99 mg/dL (65-110); Potassium 4.2 mmol/L (3.4-5.0); Sodium 137 mmol/L (137-145)
[2023-11-15 10:27] LABS: LDL Cholesterol Direct 67 mg/dL
[2023-11-15 10:45] LABS: Carcinoembryonic Antigen 1.5 ng/mL (0.0-3.0)
== END 2023-11-15 08:48 | disposition home or self-care (01) ==
LOC: ANHLAB 08:52
PROVIDERS: PCP Family Medicine Adolescent Medicine; Visit Provider Internal Medicine Hematology & Oncology
DX: C18.9 Malignant neoplasm of colon, unspecified (principal); E66.9 Obesity, unspecified; E78.5 Hyperlipidemia, unspecified
CPT/HCPCS: 36415; 80053; 80061; 82378; 85025

== ENCOUNTER 2024-02-22 12:03 | Outpatient (CLI) | payer MEDICARE, SELFPAY ==
--- NOTE | ~2024-02-22 | XR_ITS ---
EXAMINATION: XR hip RT min 2V DATE: 02/22/2024 12:21 INDICATION: Right hip pain. TECHNIQUE: 2 views of right hip on 3 radiographs were obtained. COMPARISON: None. FINDINGS: There is a total right hip arthroplasty in near-anatomic alignment. No fracture. No peripro sthetic lucency to suggest loosening or infection. There are changes of posterior fusion procedure in lumbosacral spine. 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 IMPRESSION: 1. Total right hip arthroplasty in near-anatomic alignment. Reviewed, dictated and finalized at location A. RAL APPELLATE LAW CLERK
== END 2024-02-22 12:04 | disposition home or self-care (01) ==
PROVIDERS: PCP Family Medicine Adolescent Medicine; Visit Provider Family Medicine Adolescent Medicine
DX: M25.551 Pain in right hip (principal)
CPT/HCPCS: 73502

== ENCOUNTER 2024-04-15 11:41 | Outpatient (CLI) | payer MEDICARE, SELFPAY ==
[2024-04-15 11:55] LABS: Basophils Percent Auto 0.6 % (0.2-1.2); Eosinophils Absolute Auto 0.2 K/mm3 (0-0.3); Eosinophils Percent Auto 2.4 % (0-4.4); Hemoglobin 12.9 g/dL (12.0-15.0); Immature Granulocyte Absolute 0.02 K/mm3 (0.00-0.031); Immature Granulocyte Percent A 0.3 % (0-0.5); Lymphocytes Absolute Auto 1.78 K/mm3 (0.9-3.2); Mean Corpuscular HGB Conc 32.3 g/dl (32-36); Mean Corpuscular Hemoglobin 29.6 pg (26-34); Mean Corpuscular Volume 91.7 fl (80-100); Mean Platelet Volume 9.2 fl (7.4-10.4); Monocytes Absolute Auto 0.5 K/mm3 (0.1-0.6); Monocytes Percent Auto 7.7 % (2.6-8.5); Neutrophils Absolute Auto 4.1 K/mm3 (1.3-6.7); Platelet Count Result 277 k/mm3 (150-375); Red Blood Count 4.36 M/mm3 (4.2-5.4); Red Cell Distribution Width 13.1 % (11.5-14.5); White Blood Count 6.6 K/mm3 (4.5-10.0)
[2024-04-15 17:08] LABS: Alanine Aminotransferase 22 U/L (6-35); Albumin Level 4.2 g/dL (3.5-5.1); Alkaline Phosphatase 99 U/L (38-126); Anion Gap 6 mmol/L (4-12); Aspartate Amino Transferase 27 U/L (14-36); Bilirubin,Total 0.8 mg/dL (0.2-1.3); Blood Urea Nitrogen 25 mg/dL (7-17); Calcium 9.3 mg/dL (8.4-10.2); Carbon Dioxide 28 mmol/L (22-30); Chloride 103 mmol/L (98-107); Estimated Glomerular Filt Rate > 60; Glucose 84 mg/dL (65-110); Potassium 4.3 mmol/L (3.4-5.0); Sodium 137 mmol/L (137-145)
== END 2024-04-15 11:42 | disposition home or self-care (01) ==
LOC: ANHLAB 11:42
PROVIDERS: PCP Family Medicine Adolescent Medicine; Visit Provider Internal Medicine Hematology & Oncology
DX: C18.9 Malignant neoplasm of colon, unspecified (principal)
CPT/HCPCS: 36415; 80053; 82378; 85025

== ENCOUNTER 2024-04-15 12:02 | Outpatient (CLI) | payer MEDICARE, SELFPAY ==
--- NOTE | ~2024-04-15 | MM_ITS ---
EXAMINATION: MM screening bronson BI w jaime HISTORY: Screening mammogram, family history of breast cancer in her sister. TECHNIQUE: Craniocaudal and mediolateral oblique 3-D tomosynthesis images were obtained and synthetic 2-D images were generated. CAD analysis was submitted and interpreted. COMPARISON: 08/03/2020 BREAST PARENCHYMAL COMPOSITION:Not Dense. The breasts are almost entirely fatty FINDINGS: No suspicious mass, calcification, or architectural distortion are identified in either reena ast to suggest malignancy. There has been no suspicious interval change. IMPRESSION: No mammographic evidence of malignancy. Recommend routine screening mammography in one year. BI-RADS Category 1: Negative Reviewed, dictated and finalized at location . 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
== END 2024-04-15 12:03 | disposition home or self-care (01) ==
PROVIDERS: PCP Family Medicine Adolescent Medicine; Visit Provider Family Medicine Adolescent Medicine
DX: Z12.31 Encounter for screening mammogram for malignant neoplasm of breast (principal)
CPT/HCPCS: 77063; 77067

== ENCOUNTER 2024-08-05 08:38 | Outpatient (CLI) | payer MEDICARE, SELFPAY ==
[2024-08-05 08:54] LABS: Basophils Absolute Auto 0.1 K/mm3 (0.0-0.1); Basophils Percent Auto 0.6 % (0.2-1.2); Eosinophils Absolute Auto 0.3 K/mm3 (0-0.3); Eosinophils Percent Auto 3.9 % (0-4.4); Hematocrit 40.2 % (37.0-47.0); Hemoglobin 13.3 g/dL (12.0-15.0); Immature Granulocyte Absolute 0.02 K/mm3 (0.00-0.031); Immature Granulocyte Percent A 0.3 % (0-0.5); Lymphocytes Absolute Auto 1.45 K/mm3 (0.9-3.2); Lymphocytes Percent Auto 18.8 % (18.3-44.2); Mean Corpuscular HGB Conc 33.1 g/dl (32-36); Mean Corpuscular Hemoglobin 29.2 pg (26-34); Mean Corpuscular Volume 88.2 fl (80-100); Mean Platelet Volume 9.5 fl (7.4-10.4); Monocytes Absolute Auto 0.7 K/mm3 (0.1-0.6); Monocytes Percent Auto 9.6 % (2.6-8.5); Neutrophils Absolute Auto 5.1 K/mm3 (1.3-6.7); Neutrophils Percent Auto 66.8 % (45.5-73.1); Platelet Count Result 266 k/mm3 (150-375); Red Blood Count 4.56 M/mm3 (4.2-5.4); Red Cell Distribution Width 13.2 % (11.5-14.5); White Blood Count 7.7 K/mm3 (4.5-10.0)
--- OUTSIDE RECORDS SUMMARY | 2024-08-05 08:59 | XMS_ITS | Clinical Summary ---
Author Organization [facility] Address [address] [place] [address] Care Team Providers Care Automobile Parts Assembler Name Role Phone Home Brown MD Primary Care Provider [phone] Allergies Active Allergy Reactions Criticality Noted Date Comments Codeine Unknown 11/04/2021 Penicillins Unknown 11/04/2021 Medications valsartan (DIOVAN) 160 mg tablet 2 Active traMADoL (ULTRAM) 50 mg tablet Take 50 mg by mouth every 6 hours as needed. 2 Active lidocaine-pril ocaine (EMLA) 2.5-2.5 % CreamIndicatio ns:Cecal cancer (CMS/HCC),Chem otherapy induced nausea and vomiting Apply to affected area see administration instructions. 30 Gram 3 2 Active HYDROcodone-ac etaminophen (NORCO) 5-325 mg tablet Take 1 Tablet by mouth every 6 hours as needed. 2 Active pantoprazole (PROTONIX) 40 mg Tablet, Delayed Release (E.C.) TAKE 1 TABLET BY MOUTH EVERY MORNING FOR FOUR WEEKS 2 Active prochlorperazi ne maleate (COMPAZINE) 10 mg tablet Take 1 Tablet (10 mg) by mouth every 6 hours as needed for Nausea/Emesis. 30 Tablet 1 3 Active ondansetron (ZOFRAN) 8 mg TabletIndicati ons:Cecal cancer (CMS/HCC),Chem otherapy induced nausea and vomiting TAKE 1 TABLET BY MOUTH EVERY 8 HOURS NEEDED FOR NAUSEA OR EMESIS 30 Tablet 3 Active potassium chloride (KLOR-CON) 10 mEq Extended Release tabletIndicati ons:Cecal cancer (CMS/HCC) TAKE 2 TABLETS BY MOUTH TWICE DAILY 60 Tablet 1 3 Active potassium chloride (KLOR-CON) 10 mEq Extended Release tablet Take 1 Tablet (10 mEq) by mouth 2 times daily. 60 Tablet 1 3 Active viatamin B complex-vitami n Q-nfmjnpjh-qdg n-folic acid 106 mg iron- 1 mg Tablet Take 1 Tablet by mouth daily. Active vitamin E 1,000 unit Capsule Take 1,000 Units by mouth daily. Active Alpha Lipoic Acid 200 mg Tablet Take by mouth. 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 Encounters Date Type Department Care Team Description 05/21/2024 External Device Data STL ABSTRACTION Provider, Abstract from Last 3 Months Family History Medical History Relation Name Comments Heart Disease Brother Heart Disease Father Cancer Mother Heart Disease Sister 1 Cancer Sister 2 Heart Disease Sister 2 Relation Name Status Comments Brother Daughter Alive Father Mother Sister 1 Alive Sister 2 Alive Social History Tobacco Use Types Packs/Day Years Used Date Smoking Tobacco: Never Smokeless Tobacco: Never Tobacco Cessation:Counseling Given: Not Answered Alcohol Use Standard Drinks/Week Comments Yes 0 (1 standard drink = 0.6 oz pur e alcohol) Comments Unknown Sex and Gender Information Value Date Recorded Sex Assigned at Not on file Legal Sex Female 1:25 PM CDT Gender Identity Not on file Sexual Orientation Not on file Last Filed Vital Signs Vital Sign Reading Time Taken Comments Blood Pressure 125/75 04/19/2024 11:22 AM SCROLL ASSEMBLER Pulse 82 04/19/2024 11:17 AM SCROLL ASSEMBLER Temperature 36.6 C (97.9 F) 04/19/2024 11:17 AM SCROLL ASSEMBLER Respiratory Rate 16 04/19/2024 11:17 AM SCROLL ASSEMBLER Oxygen Saturation 97% 04/19/2024 11:17 AM SCROLL ASSEMBLER Inhaled Oxygen Concentration - - Weight 80.6 kg (177 lb 9.6 oz) 04/19/2024 11:17 AM SCROLL ASSEMBLER Height 157.5 cm (5' 2 ) 01/19/2022 9:02 AM CDT Body Mass Index 32.48 01/19/2022 9:02 AM CDT Plan of Treatment Upcoming Encounters Date Type Department Care Team (Late Contact Info) Description 08/09/2024 8:45 AM CDT Office Visit [facility] Oncology and Hematology - [place] [facility] [address] [place] [address] Arthur Leiva MD [address] [place] [address] Health Maintenance Due Date Last Done Comments BREAST CANCER SCREENING 1990 PNEUMOCOCCAL VACCINE 50+ YEA RS (1 of 1 - PCV) 2000 ZOSTER VACCINE (1 of 2) 2000 OSTEOPOROSIS SCREENING 07/23/2015 DTAP/TDAP/TD VACCINES (2 - T d or Tdap) 09/19/2019 09/18/2009 INFLUENZA VACCINE (#1) 2023 8, 01/05/2016, 01/01/2015 RSV VACCINE (60+ or ) (1 - 1-dose 75+ series) 2025 Insurance Care Teams Automobile Parts Assembler Relationship Specialty Start Date End Date Home Brown MD PCP - General Family Practice 11/04/21
--- OUTSIDE RECORDS SUMMARY | 2024-08-05 08:59 | XMS_ITS | Referral Summary ---
Author Organization [facility] Address [address] [place] [address] Care Team Providers Care Geoscience Technician Name Role Phone Home Brown MD Primary Care Prov ider Encounters Date Type Department Care Team Description 06/18/2024 9:10 AM CDT Office Visit [facility] Orthopaedic Surgery [address] 6th [place] [address] [place] [address] Arden Avilez MD Bilateral primary osteoarthritis of first carpometacarpal joints (Primary Dx) from Last 3 Months Allergies Active Allergy Reactions Criticality Noted Date Comments Codeine Penicillins Medications multivitamin tablet tablet take 1 tablet by oral route every day with food 0 0 11/18/2014 Active atorvastatin (LIPITOR) 20 mg tablet 05/28/2020 Active traMADoL (ULTRAM) 50 mg tablet Take 1 tablet (50 mg total) by mouth every 6 (six) hours as needed for pain 120 tablet 06/01/2020 Active vitamin E 1,000 unit capsule Take 1 capsule (1,000 Units total) by mouth daily Active pantoprazole DR (PROTONIX) 40 mg EC tablet Take 1 tablet (40 mg total) by mouth every morning Active vitamin B ufcheve-Y-tya-F e-FA 106 mg iron- 1 mg tablet Take 1 tablet by mouth daily Active alpha lipoic acid 200 mg tablet Take by mouth Active valsartan (DIOVAN) 160 mg tablet Take 1 tablet (160 mg total) by mouth daily Active aspirin (Vazalore) 81 mg capsule Take 1 capsule by mouth daily Active Active Problems Problem Noted Date Diagnosed Date Cecal cancer 11/04/2021 Polyarticular osteoarthritis 11/06/2016 Atypical chest pain 07/09/2015 History of total hip arthroplasty 02/18/2014 Reactive arthritis 08/17/2013 Overview (07/08/2016): THI'S DISEASE Immunizations Immunization Administration Dates Next Due Hep B Vaccine 10/16/2009,09/18/2009 Influenza, Quadrivalent, Spl it, Preservative Free, Intramuscular 01/05/2016,01/01/2015 Influenza, Trivalent, High D ose, Split, Preservative Free, Intramuscular 12/13/2017 Influenza, Unspecified 01/12/2017 MMR 09/18/2009 Pfizer SARS-CoV-2 Monovalent Vaccination (12+ Yrs) PURPLE 05/31/2020 Tdap 09/18/2009 Social History Tobacco Use Types Packs/Day Years Used Date Smoking Tobacco: Former Cigarettes Smokeless Tobacco: Never Tobacco Cessation:Counseling Given: Not Answered Alcohol Use Standard Drinks/Week Comments Yes 0 (1 standard drink = 0.6 oz pur e alcohol) Comments Unknown Sex and Gender Information Value Date Recorded Sex Assigned at Not on file Legal Sex Female 11:29 PM HOTEL ADMINISTRATIVE ASSISTANT Gender Identity Not on file Sexual Orientation Not on file Last Filed Vital Signs Vital Sign Reading Time Taken Comments Blood Pressure 135/73 06/01/2020 1:34 PM HOTEL ADMINISTRATIVE ASSISTANT Pulse 76 06/01/2020 1:34 PM HOTEL ADMINISTRATIVE ASSISTANT Temperature 36.1 C (97 F) 06/01/2020 1:34 PM HOTEL ADMINISTRATIVE ASSISTANT Respiratory Rate 14 12/13/2018 9:57 AM CDT Oxygen Saturation 97% 06/01/2020 1:34 PM HOTEL ADMINISTRATIVE ASSISTANT Inhaled Oxygen Concentration - - Weight 86.2 kg (190 lb) 06/01/2020 1:34 PM HOTEL ADMINISTRATIVE ASSISTANT Height 157.5 cm (5' 2.01 ) 06/01/2020 1:34 PM CS T Body Mass Index 34.74 06/01/2020 1:34 PM HOTEL ADMINISTRATIVE ASSISTANT Plan of Treatment Not on file Procedures Procedure Name Priority Date/Time Associated Diagnosis Comments [place] ARTHROCENTESIS ASPIR&/INJ SMALL JT/BURSA W/O US Routine 06/18/2024 9:10 AM CDT Bilateral primary osteoarthritis of first carpometacarpal joints [place] ARTHROCENTESIS ASPIR&/INJ SMALL JT/BURSA W/O US Routine 06/18/2024 9:10 AM CDT Bilateral primary osteoarthritis of first carpometacarpal joints from Last 3 Months Results * [place] ARTHROCENTESIS ASPIR&/INJ SMALL JT/BURSA W/O US (06/18/2024 9:10 AM CDT) Arden Mane MD - 06/18/2024 9:10 AM CDT Arden Avilez MD 06/18/2024 9:32 AM Small Joint Injection: L thumb CMC Performed by: Arden Avilez MD Authorized by: Arden Avilez MD Small Joint Injection/Aspiration: Consent Given by: Patient Timeout: prior to procedure the correct patient, procedure, and site was verified Verbal consent obtained?: Yes Supporting Documentation: Indications: Pain Procedure Details: Location: Thumb Site: L thumb CMC Approach: Dorsal Medications: 1 mL lidocaine 10 mg/mL (1 %); 40 mg methylPREDNISolone acetate 40 mg/mL Patient tolerance: Patient tolerated the procedure well with no immediate complications Arden Avilez MD IN CLINIC/BEDSIDE ORDERABLES Final Result * [place] ARTHROCENTESIS ASPIR&/INJ SMALL JT/BURSA W/O US (06/18/2024 9:10 AM CDT) Arden Mane MD - 06/18/2024 9:10 AM CDT Arden Avilez MD 06/18/2024 9:32 AM Small Joint Injection: R thumb CMC Performed by: Arden Avilez MD Authorized by: Arden Avilez MD Small Joint Injection/Aspiration: Consent Given by: Patient Timeout: prior to procedure the correct patient, procedure, and site was verified Verbal consent obtained?: Yes Supporting Documentation: Indications: Pain Procedure Details: Location: Thumb Site: R thumb CMC Approach: Dorsal Medications: 1 mL lidocaine 10 mg/mL (1 %); 40 mg methylPREDNISolone acetate 40 mg/mL Patient tolerance: Patient tolerated the procedure well with no immediate complications us Arden Avilez MD IN CLINIC/BEDSIDE ORDERABLES Final Result from Last 3 Months Insurance MEDICARE [facility] MEDICARE [facility] MEDICARE Address: [address] [address] [place] [address] [address] [facility] MEDICARE [facility] MEDICARE Address: [address] [address] [place] [address] Care Teams Geoscience Technician Relationship Specialty Start Date End Date Home Brown MD [address] [place] [address] PCP - General 07/01/16
--- OUTSIDE RECORDS SUMMARY | 2024-08-05 08:59 | XMS_ITS | Continuity of Care Document ---
Author Organization [facility] Address [address] [place] [address] Phone Care Team Providers Care Roller Skater Name Role Phone Merlene Xie MD, Vince Mcgee le Allergies, Adverse Reactions, Alerts Substance Reaction Status Criticality codeine Active No Information Medications Medication Instructions Dosage Effective Dates (start - stop) Status Comments Vazalore 81 mg capsule take 1 capsule by oral route every day 81 MG - Active atorvastatin 40 mg tablet take 1 tablet by oral route every day 40 MG - Active MULTIVITAMINS (unknown strength) Not [...] OFFICE/OUTPA TIENT VISIT NEW [facility], [address], [place], [address], [place] tel:[phone] [facility] hip (chief complaint) Thigh (chief complaint) History of total right hip replacementIliot ibial band syndrome of right side 4 Merlene Clarke. [address], [place], [address], [place]. tel:[phone] Specialist: Desiree [address], [place], [address]. tel:[phone] ring Provider: Home Cotter, [address] [place] [address], [place], [address]. tel:[phone] OFFICE/OUTPA TIENT VISIT EST [facility], [address], [place], [address], [place] tel:[phone] [facility] Follow Up of L Hip (chief complaint) Hip joint replacement 4 [facility] [address], [place], [place], [address] . tel:[phone] Specialist: Desiree [address], [place], [address]. tel:[phone] ring Provider: Home Cotter, [address] [place] [address], [address]. tel:[phone] OFFICE/OUTPA TIENT VISIT EST [facility], [address], [place], [address], [place] tel:[phone] [facility] left hip (chief complaint) Hip joint replacement 4 Boyer Melba. [address], [place], [place], [address] . tel:[phone] Specialist: Jammie [address], [place], [address]. tel:[phone] ring Provider: Home Cotter, [address] [place] [address], [address]. tel:[phone] [facility], [address] [address], [place], [address], [place] tel:[phone] [facility] Hip joint replacement 3-201 4 Dusek Yusuf. [address] [facility], [place], [place], [id number] . tel:[phone] Specialist: Rosamaria Littlejohn, [address] [facility] [address], [place], [address]. tel:[phone] ring Provider: Home Cotter, [address] [place] [address], [address]. tel:[phone] OFFICE/OUTPA TIENT VISIT EST [facility], [address] [address], [place], [address], [place] tel:[phone] [facility] Left hip new problem (chief complaint) Osteoarthrosis, unspecified whether generalized or localized, involving pelvic region and thighHip joint replacement 0-201 3 Dus[address] Yusuf. [address], [place], [place], [address] . tel:[phone] Specialist: Rosamaria Littlejohn [address] [facility] [address], [place], [address]. tel:[phone] Provider: Home Cotter, [address] [place] [address], [address]. tel:[phone] OFFICE/OUTPA TIENT VISIT EST [facility], [address] [address], [place], [address], [place] tel:[phone] [facility] right hip (chief complaint) Hip joint replacement 8-201 3 Dusek Yusuf. [address] , [place], [place], [address] . tel:[phone] Referring Provider: Home Cotter, [address] [place] [address], [address]. tel:[phone] [facility], [address], [address], tel:[phone] [facility] S/P R THR (chief complaint) Osteoarthrosis, unspecified whether generalized or localized, involving pelvic region and thigh 2 Dus[address] Yusuf. [address] [place], [place], [address] . tel: [phone] Referring Provider: Home Brown S, [address] [place] [address], [place], [address]. tel:[phone] [facility], [address], [address], [place] tel:[phone] [facility] No Information 2 Dus[address] Yusuf. [address] [place], [place], [address] . tel: [phone] Family History Family Member Type Diagnosis Age At Onset Mother Problem (finding) cancer of colon Father Problem (finding) Heart disease Father Problem (finding) stroke Brother Problem (finding) Heart disease Payers Payer name Insurance type Covered constitution party ID Lee perdomo(s) [facility] Medicare Advantage PPO OT [id number] Social History Type Description Quantity Date Captured [...]
--- OUTSIDE RECORDS SUMMARY | 2024-08-05 08:59 | XMS_ITS | Clinical Summary ---
Author Organization [facility] Address [address] [place] [address] Care Team Providers Care Septic Tank Cleaner Name Role Phone Home Brown MD Primary Care Prov ider Allergies Active Allergy Reactions Criticality Noted Date [...] by mouth every morning Active vitamin B ebbnqxn-K-sxk-F e-FA 106 mg iron- 1 mg tablet [...] Reactive arthritis 08/17/2013 Overview (07/08/2016): THI'S DISEASE Encounters Date Type Department Care Team Description 06/18/2024 9:10 AM CDT Office Visit [facility] Orthopaedic Surgery [address] [facility] [address] [place] [address] [place] [address] Arden Avilez MD Bilateral primary osteoarthritis of first carpometacarpal joints (Primary Dx) from Last 3 Months Immunizations Immunization Administration Dates Next Due Hep B Vaccine 10/16/2009,09/18/2009 Influenza, Quadrivalent, Spl it, Preservative Free, Intramuscular 01/05/2016,01/01/2015 Influenza, Trivalent, High D ose, Split, Preservative Free, Intramuscular 12/13/2017 Influenza, Unspecified 01/12/2017 MMR 09/18/2009 Pfizer SARS-CoV-2 Monovalent Vaccination (12+ Yrs) PURPLE 05/31/2020 Tdap 09/18/2009 Surgical History Surgery Date Site/Laterality Comments CARPAL TUNNEL RELEASE Carpal tunnel release ARTHROCENTESIS OF TROCHANTER IC BURSA Arthrocentesis of the right hip trochanteric bursa OTHER SURGICAL HISTORY 1985 back surgery with fusion HIP ARTHROPLASTY 2011 right hip replacement OTHER SURGICAL HISTORY 2012 Hip replacement left COLON SURGERY 2021 JOINT REPLACEMENT 2012 LASIK 1998 SPINE SURGERY 1984 Medical History Medical History Date Comments Depression Depression GERD (gastroesophageal reflux disease) 2021 Arthritis 1980 Cancer (HCC) 2021 Hypertension 2018 Autoimmune disease 2002 Family History Medical History Relation Name Comments Arthritis Brother 1 Capo De Dios Hypertension Brother 1 Capo De Dios Psoriasis Brother 2 Psoriasis; Heart disease Father Capo De Dios Hypertension Father Capo De Dios Stroke Father Capo De Dios Stroke; Cause of : Stroke Cancer Mother Stephanie De Dios Colon cancer Mother Stephanie De Dios Cancer -col on; Cause of : Cancer -colon Cancer Sister Kassandra Stroud Hypertension Sister Kassandra Stroud Relation Name Status Comments Brother 1 Capo De Dios Brother 2 Father Capo De Dios (Age 56) Mother Stephanie De Dios (Age 51) Sister Kassandra Stroud Social History Tobacco Use Types Packs/Day Years Used Date Smoking Tobacco: Former Cigarettes Smokeless Tobacco: Never Tobacco Cessation:Counseling Given: Not Answered Alcohol Use Standard Drinks/Week Comments Yes 0 (1 standard drink = 0.6 oz pur e alcohol) Comments Unknown Sex and Gender Information Value Date Recorded Sex Assigned at Not on file Legal Sex Female 11:29 PM TERRITORY SALES CONSULTANT Gender Identity Not on file Sexual Orientation Not on file Obstetrics History Last Filed Vital Signs Vital Sign Reading Time Taken Comments Blood Pressure 135/73 06/01/2020 1:34 PM TERRITORY SALES CONSULTANT Pulse 76 06/01/2020 1:34 PM TERRITORY SALES CONSULTANT Temperature 36.1 C (97 F) 06/01/2020 1:34 PM TERRITORY SALES CONSULTANT Respiratory Rate 14 12/13/2018 9:57 AM CDT Oxygen Saturation 97% 06/01/2020 1:34 PM TERRITORY SALES CONSULTANT Inhaled Oxygen Concentration - - Weight 86.2 kg (190 lb) 06/01/2020 1:34 PM TERRITORY SALES CONSULTANT Height 157.5 cm (5' 2.01 ) 06/01/2020 1:34 PM CS T Body Mass Index 34.74 06/01/2020 1:34 PM TERRITORY SALES CONSULTANT Plan of Treatment Health Maintenance Due Date Last Done Comments Breast Cancer Screening-Mammogram 1950 Colon Cancer Screening-Colonoscopy 1950 Depression Screening 1950 Hepatitis C Screening 1950 Osteoporosis Screening-Bone Density Scan 1950 Pneumococcal vaccine 65+ (1 of 1 - PCV) 2000 Zoster Vaccine (1 of 2) 2000 Well Visit 65+ 07/23/2015 DTaP/Tdap/Td Vaccine (2 - Td or Tdap) 09/19/2019 09/18/2009 Fall Risk Assessment 06/01/2021 06/01/2020, 12/26/2019, 06/13/2019 Covid-19 Vaccine (2 - 2023-2 5 season) 2023 05/31/2020 Influenza Vaccine (Season Ended) 2024 12/13/2017, 01/12/2017, 01/05/2016, Additional history exists Hepatitis B Screening Completed 10/16/2009, 010 Procedures Procedure Name Priority Date/Time Associated Diagnosis Comments [place] ARTHROCENTESIS ASPIR&/INJ SMALL JT/BURSA W/O US Routine 06/18/2024 9:10 AM CDT Bilateral primary osteoarthritis of first carpometacarpal joints DE ARTHROCENTESIS ASPIR&/INJ SMALL JT/BURSA W/O US Routine 06/18/2024 9:10 AM CDT Bilateral primary osteoarthritis of first carpometacarpal joints from Last 3 Months Results * DE ARTHROCENTESIS ASPIR&/INJ SMALL JT/BURSA W/O US (06/18/2024 [...] MD IN CLINIC/BEDSIDE ORDERABLES Final Result * [place] ARTHROCENTESIS ASPIR&/INJ SMALL JT/BURSA W/O US (06/18/2024 [...] Result from Last 3 Months Insurance MEDICARE [facility] Address: [address] [place] [address] [employer] MEDICARE [facility] Address: [address] [address] [place] [address] MEDICARE [facility] MEDICARE ADVANTAGE Care Teams Septic Tank Cleaner Relationship Specialty Start Date End Date Home Brown MD [address] [place] [address] PCP - General 07/01/16
[2024-08-05 11:20] LABS: Alanine Aminotransferase 28 U/L (6-35); Albumin Level 4.3 g/dL (3.5-5.1); Alkaline Phosphatase 102 U/L (38-126); Anion Gap 10 mmol/L (4-12); Aspartate Amino Transferase 32 U/L (14-36); Bilirubin,Total 0.6 mg/dL (0.2-1.3); Blood Urea Nitrogen 18 mg/dL (7-17); Calcium 9.1 mg/dL (8.4-10.2); Carbon Dioxide 26 mmol/L (22-30); Chloride 106 mmol/L (98-107); Estimated Glomerular Filt Rate > 60; Glucose 125 mg/dL (65-110); Potassium 3.6 mmol/L (3.4-5.0); Sodium 142 mmol/L (137-145)
[2024-08-05 11:49] LABS: Carcinoembryonic Antigen 1.8 ng/mL (0.0-3.0)
== END 2024-08-05 08:39 | disposition home or self-care (01) ==
PROVIDERS: PCP Family Medicine Adolescent Medicine; Visit Provider Internal Medicine Hematology & Oncology
DX: C18.9 Malignant neoplasm of colon, unspecified (principal)
CPT/HCPCS: 36415; 80053; 82378; 85025

== ENCOUNTER 2024-09-09 02:22 | Day surgery (SDC) | payer MEDICARE, SELFPAY ==
[2024-08-27 15:51] VITALS: BMI 32.2
--- OUTSIDE RECORDS SUMMARY | 2024-09-09 02:25 | XMS_ITS | Continuity of Care Document ---
Author Organization [facility] Address [address] [place] [address] Phone Care Team Providers Care Ethyl Blender Name Role Phone Merlene Xie MD, Vince [...] OFFICE/OUTPA TIENT VISIT NEW [facility], [address], [place], [address], [place] tel:[phone] [facility] hip (chief complaint) Thigh (chief complaint) History of total right hip replacementIliot ibial band syndrome of right side 4 Merlene Clarke. [address], [place], [address], [place]. tel:[phone] Specialist: Desiree Vides [address], [place], [address]. tel:[phone] ring Provider: Home Cotter, [address] [place] [address], [place], [address]. tel:[phone] OFFICE/OUTPA TIENT VISIT EST [facility], [address], [place], [address], [place] tel:[phone] [facility] Follow Up of L Hip (chief complaint) Hip joint replacement 4 [facility]. [address], [place], [place], [address] . tel:[phone] Specialist: Desiree [address], [place], [address]. tel:[phone] ring Provider: Home Cotter, [address] [place] [address], [address]. tel:[phone] OFFICE/OUTPA TIENT VISIT EST [facility], [address], [place], [address], [place] tel:[phone] [facility] left hip (chief complaint) Hip joint replacement 4 Boyer Melba. [address], [place], [place], [id number] . tel:[phone] Specialist: Jammie [address], [place], [address]. tel:[phone] ring Provider: Home Cotter, [address] [place] [address], [address]. tel:[phone] [facility], [address] [address], [place], [address], [place] tel:[phone] [facility] Hip joint replacement 3-201 4 Dusek Yusuf. [address] [facility], [place], [place], [id number] . tel:[phone] Specialist: Rosamaria Littlejohn, [address] [facility] [address], [place], [address]. tel:[phone] ring Provider: Home Cotter, [address] [place] [address], [address]. tel:[phone] OFFICE/OUTPA TIENT VISIT EST [facility], [address] [address], [place], [address], [place] tel:[phone] [facility] Left hip new problem (chief complaint) Osteoarthrosis, unspecified whether generalized or localized, involving pelvic region and thighHip joint replacement 0-201 3 Dusek Yusuf. [address] [facility] [address] [facility], [place], [place], [address] . tel:[phone] Specialist: Rosamaria Littlejohn [address] [facility] [address], [place], [address]. tel:[phone] Provider: Home Cotter, [address] [place] [address], [address]. tel:[phone] OFFICE/OUTPA TIENT VISIT EST [facility], [address] [address], [place], [address], [place] tel:[phone] [facility] right hip (chief complaint) Hip joint replacement 8-201 3 Dusek Yusuf. [address] , [place], [place], [address] . tel:[phone] Referring Provider: Home Cotter, [address] [place] [address], [address]. tel:[phone] [facility]opedic s, [address], [address], tel:[phone] [facility] S/P R THR (chief complaint) Osteoarthrosis, unspecified whether generalized or localized, involving pelvic region and thigh 2 Dusek Yusuf. [address] [place], [place], [id number] . tel: [phone] Referring Provider: Home Brown S, [address] [place] [address], [place], [address]. tel:[phone] [facility], [address], [address], [place] tel:[phone] [facility] No Information 2 Dusek Yusuf. [address] [place], [place], [address] . tel: [phone] Family History Family Member Type Diagnosis Age At Onset Mother Problem (finding) cancer of colon Father Problem (finding) Heart disease Father Problem (finding) stroke Brother Problem (finding) Heart disease Payers Payer name Insurance type Covered green party ID Lee perdomo(s) [facility] Medicare Advantage PPO OT [id number] Social History Type Description Quantity Date Captured [...]
--- OUTSIDE RECORDS SUMMARY | 2024-09-09 02:25 | XMS_ITS | Referral Summary ---
Author Organization [facility] Address [address] [place] [address] Care Team Providers Care Machine Mover Name Role Phone Home Brown MD Primary Care Prov ider Encounters Date Type Department Care Team Description 06/18/2024 9:10 AM CDT Office Visit [facility] Orthopaedic Surgery [address] [facility] 6th [place] [address] [place] [address] Arden Avilez MD Bilateral primary [...] by mouth every morning Active vitamin B attgidh-J-rhp-F e-FA 106 mg iron- 1 mg tablet [...] on file Legal Sex Female 11:29 PM MICA SIZER Gender Identity Not on file Sexual Orientation Not on file Last Filed Vital Signs Vital Sign Reading Time Taken Comments Blood Pressure 135/73 06/01/2020 1:34 PM MICA SIZER Pulse 76 06/01/2020 1:34 PM MICA SIZER Temperature 36.1 C (97 F) 06/01/2020 1:34 PM MICA SIZER Respiratory Rate 14 12/13/2018 9:57 AM CDT Oxygen Saturation 97% 06/01/2020 1:34 PM MICA SIZER Inhaled Oxygen Concentration - - Weight 86.2 kg (190 lb) 06/01/2020 1:34 PM MICA SIZER Height 157.5 cm (5' 2.01) 06/01/2020 1:34 PM CS T Body Mass Index 34.74 06/01/2020 1:34 PM MICA SIZER Plan of Treatment Not on file Procedures Procedure Name Priority Date/Time Associated Diagnosis Comments WI ARTHROCENTESIS ASPIR&/INJ SMALL JT/BURSA W/O US Routine 06/18/2024 9:10 AM CDT Bilateral primary osteoarthritis of first carpometacarpal joints WI ARTHROCENTESIS ASPIR&/INJ SMALL JT/BURSA W/O US Routine 06/18/2024 9:10 AM CDT Bilateral primary osteoarthritis of first carpometacarpal joints from Last 3 Months Results * WI ARTHROCENTESIS ASPIR&/INJ SMALL JT/BURSA W/O US (06/18/2024 [...] MD IN CLINIC/BEDSIDE ORDERABLES Final Result * WI ARTHROCENTESIS ASPIR&/INJ SMALL JT/BURSA W/O US (06/18/2024 [...] Result from Last 3 Months Insurance MEDICARE [facility] MEDICARE ADVANTAGE MEDICARE [facility] Address: [address] [address] [place] [address] [facility] MEDICARE ADVANTAGE Care Teams Machine Mover Relationship Specialty Start Date End Date Home Brown MD [address] [place] [address] PCP - General 07/01/16
--- OUTSIDE RECORDS SUMMARY | 2024-09-09 02:25 | XMS_ITS | Clinical Summary ---
Author Organization [facility]3] [facility] Address [address] [place] [address] Care Team Providers Care Dump Truck Operator Name Role Phone Home Brown MD Primary Care Provider [phone] Allergies Active Allergy Reactions Criticality Noted Date [...] 1 3 Active viatamin B complex-vitami n H-ibbwdzqf-awx n-folic acid 106 mg iron- 1 mg Tablet Take 1 Tablet by mouth daily. Active vitamin E 1,000 unit Capsule Take 1,000 Units by mouth daily. Active Alpha Lipoic Acid 200 mg Tablet Take by mouth. 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 Encounters Date Type Department Care Team Description 08/21/2024 External Device Data STL ABSTRACTION Provider, Abstract 08/20/2024 External Device Data STL ABSTRACTION Provider, Abstract 08/13/2024 Orders Only [facility]3] Oncology and Hematology [facility] [address] [place] [address] Arthur Leiva MD 08/09/2024 8:45 AM CDT Office Visit [facility]3] Oncology and Hematology [facility] [address] [place] [address] Arthur Leiva MD Malignant neoplasm of colon, unspecified part of colon (CMS/HCC) (Primary Dx) 08/06/2024 Orders Only [facility]3] Oncology and Hematology [place] [address] [place] [address] Arthur Leiva MD from Last 3 Months Family History Medical [...] Sign Reading Time Taken Comments Blood Pressure 148/89 08/09/2024 8:47 AM CDT Pulse 80 08/09/2024 8:45 AM CDT Temperature 36.3 C (97.4 F) 08/09/2024 8:45 AM CDT Respiratory Rate 15 08/09/2024 8:45 AM CDT Oxygen Saturation 96% 08/09/2024 8:45 AM CDT Inhaled Oxygen Concentration - - Weight 83.4 kg (183 lb 12.8 oz) 08/09/2024 8:45 AM CDT Height 157.5 cm (5' 2) 01/19/2022 9:02 AM CDT Body Mass Index 33.62 01/19/2022 9:02 AM CDT Plan of Treatment Upcoming Encounters Date Type Department Care Team (Late st Contact Info) Description 12/20/2024 10:45 AM CDT Office Visit [facility]3] Oncology and Hematology - [place] [address] [facility] [address] [place] [address] Arthur Leiva MD [address] [facility] [address] [place] [address] Health Maintenance Due Date Last Done Comments BREAST CANCER SCREENING 1990 PNEUMOCOCCAL VACCINE 50+ YEA RS (1 of 1 - PCV) 2000 ZOSTER VACCINE (1 of 2) 2000 OSTEOPOROSIS SCREENING 07/23/2015 DTAP/TDAP/TD VACCINES (2 - T d or Tdap) 09/19/2019 09/18/2009 INFLUENZA VACCINE (#1) 2023 8, 01/05/2016, 01/01/2015 RSV VACCINE (60+ or ) (1 - 1-dose 75+ series) 2025 Procedures Procedure Name Priority Date/Time Associated Diagnosis Comments COMPREHENSIVE METABOLIC PANEL Routine 08/05/2024 2:52 PM CDT CBC WITH DIFFERENTIAL Routine 08/05/2024 1:54 PM CDT from Last 3 Months Results * COMPREHENSIVE METABOLIC PANEL (08/05/2024 2:52 PM CDT) Blood Arthur Leiva MD CHEMISTRY ORDERABLES Final Resu lt * CBC WITH DIFFERENTIAL (08/05/2024 1:54 PM CDT) Blood Arthur Leiva MD HEMATOLOGY ORDERABLES Final Res ult from Last 3 Months Insurance Care Teams Dump Truck Operator Relationship Specialty Start Date End Date Home Brown MD PCP - General Family Practice 11/04/21
--- OUTSIDE RECORDS SUMMARY | 2024-09-09 02:25 | XMS_ITS | Clinical Summary ---
Author Organization [facility] Address [address] [place] [address] Care Team Providers Care Family Court Justice Name Role Phone Home Brown MD Primary [...] by mouth every morning Active vitamin B oettsmq-X-pbm-F e-FA 106 mg iron- 1 mg tablet [...] Description 06/18/2024 9:10 AM CDT Office Visit [facility] Orthopaedic Surgery [address] [facility] [address] [place] [address] [place] [address] Arden Avilez MD Bilateral primary osteoarthritis of [...] on file Legal Sex Female 11:29 PM FOUNTAIN WAITRESS/WAITER Gender Identity Not on file Sexual Orientation Not on file Obstetrics History Last Filed Vital Signs Vital Sign Reading Time Taken Comments Blood Pressure 135/73 06/01/2020 1:34 PM FOUNTAIN WAITRESS/WAITER Pulse 76 06/01/2020 1:34 PM FOUNTAIN WAITRESS/WAITER Temperature 36.1 C (97 F) 06/01/2020 1:34 PM FOUNTAIN WAITRESS/WAITER Respiratory Rate 14 12/13/2018 9:57 AM CDT Oxygen Saturation 97% 06/01/2020 1:34 PM FOUNTAIN WAITRESS/WAITER Inhaled Oxygen Concentration - - Weight 86.2 kg (190 lb) 06/01/2020 1:34 PM FOUNTAIN WAITRESS/WAITER Height 157.5 cm (5' 2.01) 06/01/2020 1:34 PM CS T Body Mass Index 34.74 06/01/2020 1:34 PM FOUNTAIN WAITRESS/WAITER Plan of Treatment Health Maintenance Due Date [...] Procedure Name Priority Date/Time Associated Diagnosis Comments MA ARTHROCENTESIS ASPIR&/INJ SMALL JT/BURSA W/O US Routine 06/18/2024 9:10 AM CDT Bilateral primary osteoarthritis of first carpometacarpal joints MA ARTHROCENTESIS ASPIR&/INJ SMALL JT/BURSA W/O US Routine 06/18/2024 9:10 AM CDT Bilateral primary osteoarthritis of first carpometacarpal joints from Last 3 Months Results * MA ARTHROCENTESIS ASPIR&/INJ SMALL JT/BURSA W/O US (06/18/2024 9:10 AM CDT) Adren Mane MD - 06/18/2024 9:10 AM CDT [...] MD IN CLINIC/BEDSIDE ORDERABLES Final Result * MA ARTHROCENTESIS ASPIR&/INJ SMALL JT/BURSA W/O US (06/18/2024 [...] Result from Last 3 Months Insurance MEDICARE [facility] UHC MEDICARE ADVANTAGE MEDICARE [facility] MEDICARE ADVANTAGE Care Teams Family Court Justice Relationship Specialty Start Date End Date Home Brown MD [address] [place] [address] PCP - General 07/01/16
[2024-09-09 07:44] VITALS: BP 141/76; PULSE 84; RESP 18; TEMP 36.1; O2SAT 99; BMI 32.4
[2024-09-09] MEDS: LACTATED RINGERS 1,000 ML 150 ML IV CONT (07:53)
--- NOTE | 2024-09-09 08:14 | PM.HPGS ---
History of Present Illness History of Present Illness Consent: Risks, benefits, and alternatives have been discussed and questions answered. Patient agrees to proceed with procedure. Chief complaint: personal hx of colon polyps Narrative: Sondra Lubin is a 74 year old female with colon cancer in 2021 s/p rt hemicolectomy, last colonoscopy 2022 Review of Systems Review of Systems: All systems reviewed & are unremarkable except as noted in HPI and below PMFSH Past Medical History Medical History (Updated 09/09/24 @ 08:14 by Blake Ferris MD) History of colon cancer History of colon polyps Obese ANTWAN (iron deficiency anemia) Juvenile Hoa's syndrome Hypertension Fibromyalgia Arthritis Hyperlipidemia Surgical History Surgical History (Updated 09/09/24 @ 08:15 by Blake Ferris MD) History of right hemicolectomy (10/2021) Cecal cancer History of back surgery History of bilateral hip replacements Family History Family History Mother Colon cancer Grandparent Colon cancer Sibling Melanoma Breast cancer Heart disease Father Heart disease Other Cerebrovascular accident Social History Social History Smoking packs per day: 0.5 Smoking cigarettes per day: 10.0 Years smoked: 5 Smoking pack-years: 2.50 Smoking status: Former smoker Tobacco type: cigarettes Second hand tobacco smoke exposure: No Smoking end date: 04/03/88 Alcohol intake: current Drinks per week: 1 Alcohol use details: Socially Substance use: never Substance use type: does not use Living arrangements: alone Occupation/Education: retired Gender identity (if verbalized by the patient): Female Sexual Orientation (if Verbalized by the Patient): Straight or Heterosexual Spiritual care concerns: No Agree to blood products: Yes Meds Home Medications and Allergies Home Medications ?Medication ?Instructions ?Recorded ?Confirmed ?Type multivitamin (Daily Multi-Vitamin 1 tablet PO DAILY 10/18/19 09/09/24 History tablet) ipratropium bromide 42 mcg (0.06 2 spray intranasal BID PRN Runny 06/14/21 08/27/24 History %) nasal spray Nose aspirin 81 mg tablet 81 mg PO DAILY 01/05/22 09/09/24 History atorvastatin 20 mg tablet See Rx Instructions .Route 01/25/24 09/09/24 Rx .COMPLEX #90 tabs tramadol 50 mg tablet 50 mg PO Q6H PRN pain #120 tabs 05/14/24 08/27/24 Rx valsartan 160 mg tablet See Rx Instructions .Route 07/17/24 09/09/24 Rx .COMPLEX #90 tabs alpha lipoic acid 200 mg capsule 200 mg PO DAILY 08/27/24 09/09/24 History ondansetron 4 mg disintegrating 4 mg PO Q6H PRN nausea and 08/27/24 Rx tablet vomiting #4 tabs resversatrol 500 mg PO DAILY 08/27/24 09/09/24 History sodium,potassium,mag sulfates 17.5 See Rx Instructions PO .COMPLEX 08/27/24 Rx gram-3.13 gram-1.6 gram oral soln Colonoscopy #354 mL (Suprep Bowel Prep Kit) vitamin B complex (Complex B-100 1 tablet PO DAILY 08/27/24 09/09/24 History tablet,extended release) vitamin E 670 mg (1,000 unit) 670 mg PO DAILY 08/27/24 09/09/24 History capsule pantoprazole 40 mg tablet,delayed 40 mg PO DAILY 3 months #90 tabs 09/03/24 09/09/24 Rx release Allergies Allergy/AdvReac Type Severity Reaction Status Date / Time codeine Allergy Mild unsure Verified 09/09/24 07:42 Vital Signs Vital Signs - 24 hr 09/09/24 07:44 Temperature 97 F L Pulse Rate 84 Respiratory Rate 18 Blood Pressure 141/76 H Pulse Oximetry 99 Oxygen Delivery Room Air Exam Const: General: comfortable and no acute distress HENMT: Face/Nose/Sinus: Normal nares present Eyes: General: appearance normal, both eyes and all related structures Neck: Neck: no JVD Resp: Auscultation: clear to auscultation bilaterally Cardio: Rate: regular rate Rhythm: regular rhythm GI: Inspection: non-distended GI Palp: Yes Soft to palpation Skin: General skin exam: normal color Neuro: General: gait normal Speech: normal speech Extrem: General: normal to inspection Psych: Mental Status: mental status grossly normal Assessment and Plan Assessment and plan (1) History of colon cancer: Code(s): Z85.038 - Personal history of other malignant neoplasm of large intestine Status: Acute Assessment and Plan: colonoscopy (2) History of right hemicolectomy: Onset Date: 10/2021 Code(s): Z90.49 - Acquired absence of other specified parts of digestive tract Status: Acute
--- NOTE | 2024-09-09 08:17 | P.PNAN_ITS ---
Anes - Initial Pre Proc Eval Procedure: Operation Date: 09/09/24 09:00 Proposed Procedures p Colonoscopy - Blake Ferris MD Date/Time: 09/09/24 08:17 Surgeon: Blake Ferris MD Pre Op Diagnosis: personal hx of colon polyps Patient Data Age: 74 Gender: F Height: 1.57 m Weight: 80.4 kg Last Vital Signs Temp 36.1 C L 09/09/24 07:44 Pulse 84 09/09/24 07:44 Resp 18 09/09/24 07:44 BP 141/76 H 09/09/24 07:44 Pulse Ox 99 09/09/24 07:44 O2 Del Method Room Air 09/09/24 07:44 Allergies Allergy/AdvReac Type Severity Reaction Status Date / Time codeine Allergy Mild unsure Verified 09/09/24 07:42 Home Medications ?Medication ?Instructions ?Recorded ?Confirmed ?Type multivitamin (Daily Multi-Vitamin 1 tablet PO DAILY 10/18/19 09/09/24 History tablet) ipratropium bromide 42 mcg (0.06 2 spray intranasal BID PRN Runny 06/14/21 08/27/24 History %) nasal spray Nose aspirin 81 mg tablet 81 mg PO DAILY 01/05/22 09/09/24 History atorvastatin 20 mg tablet See Rx Instructions .Route 01/25/24 09/09/24 Rx .COMPLEX #90 tabs tramadol 50 mg tablet 50 mg PO Q6H PRN pain #120 tabs 05/14/24 08/27/24 Rx valsartan 160 mg tablet See Rx Instructions .Route 07/17/24 09/09/24 Rx .COMPLEX #90 tabs alpha lipoic acid 200 mg capsule 200 mg PO DAILY 08/27/24 09/09/24 History ondansetron 4 mg disintegrating 4 mg PO Q6H PRN nausea and 08/27/24 Rx tablet vomiting #4 tabs resversatrol 500 mg PO DAILY 08/27/24 09/09/24 History sodium,potassium,mag sulfates 17.5 See Rx Instructions PO .COMPLEX 08/27/24 Rx gram-3.13 gram-1.6 gram oral soln Colonoscopy #354 mL (Suprep Bowel Prep Kit) vitamin B complex (Complex B-100 1 tablet PO DAILY 08/27/24 09/09/24 History tablet,extended release) vitamin E 670 mg (1,000 unit) 670 mg PO DAILY 08/27/24 09/09/24 History capsule pantoprazole 40 mg tablet,delayed 40 mg PO DAILY 3 months #90 tabs 09/03/24 09/09/24 Rx release Patient hx anesthesia problems: none Family hx anesthesia problems: none Results Review: All pre-operative results and documents have been reviewed as part of the pre-operative evaluation. [facility] Past Medical History Medical History History of colon cancer History of colon polyps Obese ANTWAN (iron deficiency anemia) Juvenile Hoa's syndrome Hypertension Fibromyalgia Arthritis Hyperlipidemia Surgical History Surgical History History of right hemicolectomy (10/2021) Cecal cancer History of back surgery History of bilateral hip replacements Family History Family History Mother Colon cancer Grandparent Colon cancer Sibling Melanoma Breast cancer Heart disease Father Heart disease Other Cerebrovascular accident Social History Social History Smoking packs per day: 0.5 Smoking cigarettes per day: 10.0 Years smoked: 5 Smoking pack-years: 2.50 Smoking status: Former smoker Tobacco type: cigarettes Second hand tobacco smoke exposure: No Smoking end date: 04/03/88 Alcohol intake: current Drinks per week: 1 Alcohol use details: Socially Substance use: never Substance use type: does not use Living arrangements: alone Occupation/Education: retired Gender identity (if verbalized by the patient): Female Sexual Orientation (if Verbalized by the Patient): Straight or Heterosexual Spiritual care concerns: No Agree to blood products: Yes Anes - Eval Final PreProcedure Day of Procedure 09/09/24 08:17 Patient weight: obese Heart: regular rate and rhythm Lungs: clear to auscultation Airway: Mallampati scale class II Neurological: alert and oriented Last oral intake: >/= 8 hours ASA classification: III Emergent: no Anesthetic plan: proceed Anesthesia type and monitoring: general GIVS and standard monitoring Results Review: All pre-operative results and documents have been reviewed as part of the pre- operative evaluation. Informed Consent: The patient's anesthetic plan and its attendant risks and benefits were discussed with the patient/family/POA. Questions were solicited and answers provided to the satisfaction of the patient/family/POA.
[2024-09-09 08:29] VITALS: BP 118/69; PULSE 75; RESP 18; O2SAT 98
[2024-09-09 08:39] VITALS: BP 123/78; PULSE 70; RESP 18; O2SAT 100
[2024-09-09 08:49] VITALS: BP 122/85; PULSE 70; RESP 13; O2SAT 100
== END 2024-09-09 09:01 | disposition home or self-care (01) ==
PROVIDERS: PCP Family Medicine Adolescent Medicine; Referring Provider Nurse Practitioner Family; Visit Provider Internal Medicine Gastroenterology
PROC: 0DJD8ZZ Inspection of Lower Intestinal Tract, Via Natural or Artificial Opening Endoscopic (ICD-10-PCS; CPT 45378; principal; 2024-09-09 09:00)
DX: Z08 Encounter for follow-up examination after completed treatment for malignant neoplasm (principal); K57.30 Diverticulosis of large intestine without perforation or abscess without bleeding; Z90.49 Acquired absence of other specified parts of digestive tract; Z85.038 Personal history of other malignant neoplasm of large intestine; Z98.0 Intestinal bypass and anastomosis status; Z87.891 Personal history of nicotine dependence; E66.9 Obesity, unspecified; Z68.32 Body mass index [BMI] 32.0-32.9, adult
CPT/HCPCS: 45378; J2704; J7120

== ENCOUNTER 2024-12-11 08:28 | Outpatient (CLI) | payer MEDICARE, SELFPAY ==
--- OUTSIDE RECORDS SUMMARY | 2024-03-07 04:30 | XMS_ITS | Continuity of Care Document ---
Author Organization [facility] Address [address] [place] [address] Phone Care Team Providers Care Metal Window Screen Assembler Name Role Phone Merlene Xie MD, Vince Mcgee le Allergies, Adverse Reactions, Alerts Substance Reaction Status Criticality codeine Active No Information Medications Medication Instructions Dosage Effective Dates (start - stop) Status Comments atorvastatin 40 mg tablet take 1 tablet by oral route every day 40 MG - Active Vazalore 81 mg capsule take 1 capsule by oral route every day 81 MG - Active MULTIVITAMINS (unknown strength) Not Available - Active ORACEA (unknown strength) Not Available - No Longer Active SIMVASTATIN (unknown strength) Not Available - No Longer Active SULFASALAZINE (unknown strength) Not Available - No Longer Active Procedures Procedure Date OFFICE/OUTPATIENT VISIT NEW OFFICE/OUTPATIENT VISIT EST OFFICE/OUTPATIENT VISIT EST POSTOP FOLLOW-UP VISIT MU Reporting OFFICE/OUTPATIENT VISIT EST MU Reporting OFFICE/OUTPATIENT VISIT EST Advance Directives Directive Yes / No Effective Date File Name Other Directive No N/A N/A WARNING:The information contained in this section is historical and is provided for information only and does not constitute a legal document or any assurance that the information is still accurate. Please verify the information with the motley of the legal document before using it for clinical purposes. Encounters Encounter Description Practice Location Reason(s) For Visit Diagnoses Date Provider Providers Copied on Encounter OFFICE/OUTPA TIENT VISIT NEW [facility], [address], [place], [address], [place] tel:[phone] [facility] hip (chief complaint) Thigh (chief complaint) History of total right hip replacementIliot ibial band syndrome of right side 4 Merlene Clarke. [address], [place], [address], [place]. tel:[phone] Specialist: Dseiree Vides [address], [place], [address]. tel:[phone] ring Provider: Home Cotter, [address] [place] [address], [place], [address]. tel:[phone] OFFICE/OUTPA TIENT VISIT EST [facility], [address], [place], [address], [place] tel:[phone] [facility] Follow Up of L Hip (chief complaint) [facility] [address], [place], [place], [id number] . tel:[phone] Specialist: Desiree Vides [address], [place], [address]. tel:[phone] ring Provider: Home Cotter, [address] [place] [address], [address]. tel:[phone] OFFICE/OUTPA TIENT VISIT EST [facility], [address], [place], [address], [place] tel:[phone] [facility] left hip (chief complaint) Hip joint replacement 4 Boyer Melba. [address], [place], [place], [id number] . tel:[phone] Specialist: Jammie Vides[address], [place], [address]. tel:[phone] ring Provider: Home Cotter, [address] [place] [address], [address]. tel:[phone] [facility], [address] [address], [place], [address], [place] tel:[phone] [facility] Hip joint replacement 3-201 4 Dusek Yusuf. [address] [facility], [place], [place], [id number] . tel:[phone] Specialist: Rosamaria Littlejohn, [address] [facility] [address], [place], [address]. tel:[phone] ring Provider: Home Cotter, [address] [place] [address], [address]. tel:[phone] OFFICE/OUTPA TIENT VISIT EST [facility], [address] [address], [place], [address], [place] tel:[phone] [facility] Left hip new problem (chief complaint) Osteoarthrosis, unspecified whether generalized or localized, involving pelvic region and thighHip joint replacement 0-201 3 Dusek Yusuf. [address], [place], [place], [id number] . tel:[phone] Specialist: Rosamaria Littlejohn [address] [facility] [address], [place], [address]. tel:[phone] [facility] Provider: Home Cotter, [address] [place] [address], [address]. tel:[phone] OFFICE/OUTPA TIENT VISIT EST [facility], [address] [address], [place], [address], [place] tel:[phone] [facility] right hip (chief complaint) Hip joint replacement 8-201 3 Dusek Yusuf. [address] , [place], [place], [id number] . tel:[phone] Referring Provider: Home Cotter, [address] [place] [address], [address]. tel:[phone] [facility], [address], [address], tel:[phone] [facility] S/P R THR (chief complaint) Osteoarthrosis, unspecified whether generalized or localized, involving pelvic region and thigh 2 Dusek Yusuf. [address] [place], [place], [id number] . tel: [phone] Referring Provider: Home Brown S, [address] [place] [address], [place], [address]. tel:[phone] [facility], [address], [address], [place] tel:[phone] [facility] No Information 2 Dusek Yusuf. [address] [place], [place], [id number] . tel: [phone] Family History Family Member Type Diagnosis Age At Onset Mother Problem (finding) cancer of colon Father Problem (finding) Heart disease Father Problem (finding) stroke Brother Problem (finding) Heart disease Payers Payer name Insurance type Covered alliance party ID Lee perdomo(s) [facility] Medicare Advantage PPO OT [id number] Social History Type Description Quantity Date Captured Comments Alcohol Use Details Unknown Caffeine Use Details Unknown Tobacco Use Status Current non-smoker Smoking Status Never smoker Non-Smoking Tobacco Use Details : No Details Available : No Details Available Sex Female Vital Signs Date / Time: Height Weight BMI Pulse Rate Blood Pressure Temperature Respiratory Rate Body Surface Area Head Circumference Head Circ. Percentile Wt./Dieudonne. Percentile BMI percentile Pulse Ox Inhaled Ox 10:49 AM 62.00 in 77.111 kg (170.00 lbs) 31.0 9 kg/m eter (2) Chief Complaint And Reason For Visit From encounter dated '03/07/2024 09:30'. hip (chief complaint) Thigh (chief complaint) Reason For Referral Reason For Referral No Information Plan Of Treatment Date Type Action Status Referral Ordered: RADEX HIP UNI COMPL MINIMUM 2 VIEWS Bilateral hip ordered Referral Ordered: [facility] HIP UNI COMPL MINIMUM 2 VIEWS LT hip ordered Referral Ordered: [facility]EX PELVIS 1/2 VIEWS ordered Referral Ordered: [facility] HIP UNI COMPL MINIMUM 2 VIEWS LT ordered Referral Ordered: RADEX HIP UNI COMPL MINIMUM 2 VIEWS RT ordered History Of Present Illness Encounter Date Complaint History Of Prese nt Illness hip Thigh Follow Up of L Hip Functional Status Date Functional Assessmen t No Information Instructions Date Instruction Additional Infor mation Fall prevention home exercise program handout provided Discussed post-operative precaut ions Assessments Type Assessment Date assessment History of total right hip repla cement assessment Iliotibial band syndrome of righ t side Patient Care Teams Name Effective Dates (start - stop) Status Members No Information
--- NOTE | ~2024-12-11 | CT_ITS ---
EXAMINATION: CT abdomen pelvis w con DATE: 12/11/2024 09:02 INDICATION: Malignant neoplasm of colon. TECHNIQUE: Computed tomography (CT) of the abdomen and pelvis was performed with 100 mL Omnipaque 350 intravenous contrast. Automated exposure control and iterative reconstruction technique were employed. The dose-length product was 1018.97 mGy-cm. COMPARISON: CT abdomen and pelvis 07/17/2023 FINDINGS: The visualized portions of lung bases demonstrate mild atelectasis. There is a stable 6 mm nodule in left lower lobe, likely benign. No pleural effusion. The heart size is normal. No pericardial effusion. The liver and spleen are normal. There are gallstones in gallbladder, which is normal in size. The pancreas and adrenal glands are normal. There are cysts in the kidneys measuring up to 16 mm on the left. There is diverticulosis of the colon without evidence of diverticulitis. There are changes of right hemicolectomy. There are no pathologically enlarged lymph nodes. There is no free intraperitoneal fluid. There is an umbilical hernia containing fat. There are bilateral hip arthroplasties. There is severe lumbar spondylosis. There are changes of posterior fusion procedure from L4 to S1 with instrumentation. IMPRESSION: 1. No evidence of metastatic disease. Reviewed, dictated and finalized at location E.
--- OUTSIDE RECORDS SUMMARY | 2024-12-11 08:55 | XMS_ITS | Clinical Summary ---
Author Organization [facility] Address [address] [place] [address] Care Team Providers Care Job Hand Name Role Phone Home Brown MD Primary [...] by mouth every morning Active vitamin B bedravw-B-log-F e-FA 106 mg iron- 1 mg tablet [...] Encounters Date Type Department Care Team Description 09/17/2024 9:10 AM CDT Office Visit [facility] Medicine Orthopaedic Surgery [address] [facility] 6th [place] [address] [place] [address] Arden Avilez MD Arthritis, degenerative, localized, primary, hand, right (Primary Dx); Arthritis, degenerative, localized, primary, hand, left from Last 3 Months Immunizations Immunization Administration [...] right hip trochanteric bursa OTHER SURGICAL HISTORY 1986 back surgery with fusion HIP ARTHROPLASTY 2012 right hip replacement OTHER SURGICAL HISTORY 2013 Hip replacement left COLON SURGERY 2021 JOINT [...] on file Legal Sex Female 11:29 PM 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 RESOURCE PROJECT MANAGER Gender Identity Not on file Sexual Orientation Not on file Obstetrics History Last Filed Vital Signs Vital Sign Reading Time Taken Comments Blood Pressure 135/73 06/01/2020 1:34 PM WATER RESOURCE PROJECT MANAGER Pulse 76 06/01/2020 1:34 PM WATER RESOURCE PROJECT MANAGER Temperature 36.1 C (97 F) 06/01/2020 1:34 PM WATER RESOURCE PROJECT MANAGER Respiratory Rate 14 12/13/2018 9:57 AM CDT Oxygen Saturation 97% 06/01/2020 1:34 PM WATER RESOURCE PROJECT MANAGER Inhaled Oxygen Concentration - - Weight 86.2 kg (190 lb) 09/17/2024 9:05 AM CDT Height 157.5 cm (5' 2) 09/17/2024 9:05 AM CDT Body Mass Index 34.75 09/17/2024 9:05 AM CDT Plan of Treatment Health Maintenance Due Date [...] 2023-2 5 season) 2023 05/31/2020 Influenza Vaccine (#1) 2024 8, 01/12/2017, 01/05/2016, Additional history exists Hepatitis B Screening Completed 10/16/2009, 010 Procedures Procedure Name Priority Date/Time Associated Diagnosis Comments CO ARTHROCENTESIS ASPIR&/INJ SMALL JT/BURSA W/O US Routine 09/17/2024 9:10 AM CDT Arthritis, degenerative, localized, primary, hand, right Arthritis, degenerative, localized, primary, hand, left from Last 3 Months Results * [place] ARTHROCENTESIS ASPIR&/INJ SMALL JT/BURSA W/O US (09/17/2024 9:10 AM CDT) Arden Mane MD - 09/17/2024 9:10 AM CDT Arden Avilez MD 09/17/2024 9:59 AM Small Joint Injection: bilateral thumb CMC Performed by: Arden Avilez MD Authorized by: Arden Avilez MD Small Joint Injection/Aspiration: Consent Given by: Patient Procedure Details: Location: Thumb Site: Bilateral thumb CMC Needle Size: 25 G Approach: Dorsal Medications Right Small Joint Injection: 1 mL lidocaine 10 mg/mL (1 %); 40 mg methylPREDNISolone acetate 40 mg/mL Medications Left Small Joint Injection: 1 mL lidocaine 10 mg/mL (1 %); 40 mg methylPREDNISolone acetate 40 mg/mL Arden Avilez MD IN CLINIC/BEDSIDE ORDERABLES Final Result from Last 3 Months Insurance MEDICARE [facility] MEDICARE ADVANTAGE MEDICARE [facility] MEDICARE ADVANTAGE Care Teams Job Hand Relationship Specialty Start Date End Date Home Brown MD [facility] - General 07/01/16
--- OUTSIDE RECORDS SUMMARY | 2024-12-11 08:55 | XMS_ITS | Clinical Summary ---
Author Organization [facility] Address [address] [place] [address] Care Team Providers Care School Nurse Name Role Phone Home Brown MD Primary Care Provider [phone] Allergies Active Allergy Reactions Criticality Noted Date [...] 1 3 Active viatamin B complex-vitami n J-uirhyxwc-whm n-folic acid 106 mg iron- 1 mg Tablet Take 1 Tablet by mouth daily. Active vitamin E 1,000 unit Capsule Take 1,000 Units by mouth daily. Active Alpha Lipoic Acid 200 mg Tablet Take by mouth. 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 Encounters Date Type Department Care Team Description 12/03/2024 External Device Data ST[facility] ABSTRACTION Provider, Abstract 11/19/2024 External Device Data ST[facility] ABSTRACTION Provider, Abstract 11/12/2024 External Device Data ST[facility] ABSTRACTION Provider, Abstract 10/16/2024 External Device Data ST[facility] ABSTRACTION Provider, Abstract 10/15/2024 External Device Data ST[place] ABSTRACTION Provider, Abstract 09/18/2024 External Device Data STL ABSTRACTION Provider, Abstract [...] Description 12/20/2024 10:45 AM CDT Office Visit [facility] - [place] [address] [facility] [address] [place] [address] Arthur Leiva MD [address] [facility] [address] [place] [address] Health Maintenance Due Date Last Done Comments BREAST CANCER SCREENING 1990 PNEUMOCOCCAL VACCINE 50+ YEA RS (1 of 1 - PCV) 2000 ZOSTER VACCINE (1 of 2) 2000 OSTEOPOROSIS SCREENING 07/23/2015 DTAP/TDAP/TD VACCINES (2 - T d or Tdap) 09/19/2019 09/18/2009 INFLUENZA VACCINE (#1) 2024 8, 01/05/2016, 01/01/2015 RSV VACCINE (60+ or ) (1 - 1-dose 75+ series) 2025 Insurance Care Teams School Nurse Relationship Specialty Start Date End Date Home Brown MD PCP - General Family Practice 11/04/21
[2024-12-11 08:58] LABS: Estimated Glomerular Filt Rate > 60
== END 2024-12-11 08:29 | disposition home or self-care (01) ==
PROVIDERS: PCP Family Medicine Adolescent Medicine; Visit Provider Internal Medicine Hematology & Oncology
DX: C18.9 Malignant neoplasm of colon, unspecified (principal)
CPT/HCPCS: 36415; 74177; 80053; 80061; 82378; 85025; Q9967

== ENCOUNTER 2024-12-11 09:13 | Outpatient (CLI) | payer MEDICARE, SELFPAY ==
[2024-12-11 09:34] LABS: Hematocrit 38.2 % (37.0-47.0); Hemoglobin 12.6 g/dL (12.0-15.0); Immature Granulocyte Percent A 0.4 % (0-0.5); Lymphocytes Absolute Auto 1.86 K/mm3 (0.9-3.2); Mean Corpuscular HGB Conc 33.0 g/dl (32-36); Mean Corpuscular Hemoglobin 29.4 pg (26-34); Mean Corpuscular Volume 89.0 fl (80-100); Nucleated Red Blood Cells Absolute Auto 0.000 K/mm3 (0.0-0.012); Nucleated Red Blood Cells Perc 0.0 % (0.0-0.2); Platelet Count Result 275 k/mm3 (150-375); Red Blood Count 4.29 M/mm3 (4.2-5.4); White Blood Count 5.6 K/mm3 (4.5-10.0)
--- OUTSIDE RECORDS SUMMARY | 2024-12-11 09:53 | XMS_ITS | Clinical Summary ---
Author Organization [facility] Address [address] [place] [address] Care Team Providers Care Filbert Grower Name Role Phone Home Brown MD Primary Care Provider [phone]- [phone] Allergies Active Allergy Reactions Criticality Noted Date [...] 1 3 Active viatamin B complex-vitami n V-gtssdwtg-hgy n-folic acid 106 mg iron- 1 mg [...] Description 12/20/2024 10:45 AM CDT Office Visit [facility] Oncology and Hematology - [place] [address] [facility] [address] [place] [address] Arthur Leiva MD [address] [facility] [address] [place] [address] Health Maintenance Due Date Last Done Comments BREAST CANCER SCREENING 1990 PNEUMOCOCCAL VACCINE 50+ YEA RS (1 of 1 - PCV) 2000 ZOSTER VACCINE (1 of 2) 2000 OSTEOPOROSIS SCREENING 07/23/2015 DTAP/TDAP/TD VACCINES (2 - T d or Tdap) 09/19/2019 09/18/2009 [place] Prev entative Visit/Annual Wellness Visit 04/03/2024 INFLUENZA VACCINE (#1) 2024 8, 01/05/2016, 01/01/2015 RSV VACCINE (60+ or ) (1 - 1-dose 75+ series) 2025 Insurance [facility] [id number] Care Teams Filbert Grower Relationship Specialty Start Date End Date Home Brown MD PCP - General Family Practice 11/04/21
--- OUTSIDE RECORDS SUMMARY | 2024-12-11 09:53 | XMS_ITS | Clinical Summary ---
Author Organization [facility] Address [address] [place] [address] Care Team Providers Care Laboratory Courier Name Role Phone Home Brown MD Primary [...] by mouth every morning Active vitamin B aechudu-X-biu-F e-FA 106 mg iron- 1 mg tablet [...] Description 09/17/2024 9:10 AM CDT Office Visit 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 Gender Identity Not on file Sexual Orientation Not on file Obstetrics History Last Filed Vital Signs Vital Sign Reading Time Taken Comments Blood Pressure 135/73 06/01/2020 1:34 PM STOKER ERECTOR AND SERVICER Pulse 76 06/01/2020 1:34 PM STOKER ERECTOR AND SERVICER Temperature 36.1 C (97 F) 06/01/2020 1:34 PM STOKER ERECTOR AND SERVICER Respiratory Rate 14 12/13/2018 9:57 AM CDT Oxygen Saturation 97% 06/01/2020 1:34 PM STOKER ERECTOR AND SERVICER Inhaled Oxygen Concentration - - Weight 86.2 [...] Procedure Name Priority Date/Time Associated Diagnosis Comments [place] ARTHROCENTESIS ASPIR&/INJ SMALL JT/BURSA W/O US Routine 09/17/2024 9:10 AM CDT Arthritis, degenerative, localized, primary, hand, right Arthritis, degenerative, localized, primary, hand, left from Last 3 Months Results * [place] ARTHROCENTESIS ASPIR&/INJ SMALL JT/BURSA W/O US (09/17/2024 [...] Result from Last 3 Months [place] [address] [facility] MEDICARE ADVANTAGE MEDICARE [facility] MEDICARE ADVANTAGE Care Teams Laboratory Courier Relationship Specialty Start Date End Date Home Brown MD [facility] - General 07/01/16
[2024-12-11 10:33] LABS: Alanine Aminotransferase 24 U/L (6-35); Albumin Level 4.1 g/dL (3.5-5.1); Alkaline Phosphatase 103 U/L (38-126); Anion Gap 9 mmol/L (4-12); Aspartate Amino Transferase 31 U/L (14-36); Bilirubin,Total 0.5 mg/dL (0.2-1.3); Blood Urea Nitrogen 21 mg/dL (7-17); Calcium 8.6 mg/dL (8.4-10.2); Carbon Dioxide 23 mmol/L (22-30); Chloride 105 mmol/L (98-107); Cholesterol 135 mg/dL (0-200); Estimated Glomerular Filt Rate > 60; Glucose 89 mg/dL (65-110); HDL Direct 60 mg/dL; Potassium 4.0 mmol/L (3.4-5.0); Sodium 137 mmol/L (137-145); Total Protein 6.7 g/dL (6.3-8.2); Triglycerides 87 mg/dL (<150)
[2024-12-11 11:08] LABS: Carcinoembryonic Antigen 1.8 ng/mL (0.0-3.0)
== END 2024-12-11 09:14 | disposition home or self-care (01) ==
LOC: ANHLAB 09:14
PROVIDERS: PCP Family Medicine Adolescent Medicine; Visit Provider Internal Medicine Hematology & Oncology
DX: C18.9 Malignant neoplasm of colon, unspecified (principal); E66.9 Obesity, unspecified; E78.5 Hyperlipidemia, unspecified
CPT/HCPCS: 36415; 80053; 80061; 82378; 85025